=== PATIENT | male | born 1985 | race Caucasian/White ===

== ENCOUNTER 2018-03-17 16:07 | Emergency (ER) | payer MEDICARE ==
--- OUTSIDE RECORDS SUMMARY | 2018-03-17 16:14 | XMS REPORT ---
:1985 External Reference #:[id number] Author Organization [facility] Address [address] [place] [address] [place] [address] Phone [phone] Care Team Providers Name Role Phone Td Moore MD Primary Care Physician Unavailable Payers Type Date Identification Numbers Payment Provider Subscriber Commercial Expires: 2011 Policy Number: [id number] BS Options Tyler Tomlin PayID: [id number] [address] [address] [place] [address] Medigap Part B Effective: 2002 Policy Number: BS Of [place] Johnson Tomlin [id number] Expires: 2009 PayID: [id number] [address] [address] [place] [address] Medigap Part B Policy Number: [id number] BS Facets Johnson Tomlin PayID: [id number] [address] [address] [place] [address] Advance Directives Type Date Description Status Comment Other Directive 11/08/2017 Health Care Proxy Current and Verified Problems Date Description Provider Status Onset: 01/01/2016 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 Active Onset: 03/16/2011 Constipation Ko Sparks M.D. Active Onset: 05/11/2011 Gastrostomy present Vianey Sanchez M.D.,FACP Onset: 10/10/2011 Bronchiolectasis Vianey Sanchez M.D.,FACP Onset: 08/22/2014 Tracheostomy complication Awilda Dowling MD Active Onset: 12/25/2017 Acquired equinovarus deformity Efren Christiansen MD Active Onset: 12/25/2017 Tendon contracture Efren Christiansen MD Active Onset: 10/21/2015 Acute exacerbation of Awilda Dowling MD Inactive bronchiectasis Inactive: 01/01/2016 Onset: 03/16/2011 Hemorrhage of rectum and anus Ko Sparks M.D. 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 Cigarette Use Never Smoked Cigarettes ETOH Use 11/08/2017 Denies alcohol use Recreational Drug Use Denies Drug Use Smoking Patient has never smoked Daily Caffeine Does Not Consume Caffeine Exercise Type/Frequency Exercises regularly elliptical 1x/wk and walking every day General Hx Text Allergies, Adverse Reactions, Alerts Date Description Reaction Status Severity Comments 06/05/2007 NKDA active Medications Medication Date Status Form Strength Qnty SIG Indications Ordering Provider Nebusal 02/20 Active Nebulizer 3% 240ml 1 unit J47.9 Awilda twice daily Josey, for 2 weeks Saline 02/20 Active Solution 0.9% 500un for use Z93.0 Awilda its through Josey, tracheostom y compressor Albuterol 05/30 Active Nebulizer 0.63mg/3M 225ml 1 unit, J47.9 Awilda Sulfate L nebl, every Josey, 12 hours, prior to saline neb Suction Tube 10/20 Active Misc 1unit use as J47.1 Awilda Attachment s instructed Josey Device Suction 10/20 Active Pls provide Awilda Equipment /2015 pt with te Dowling MD equipment and necessary supplies Enteral Pump 09/28 Active 30uni enteral Awilda Bags ts pump bags MD Josey Jevity 1.5 Matthew 09/07 Active Liquid 210un 7 cans/day J95.00 its as concepcion Dowling MD Aden-Cramer 07/12 Active Misc 18FR Kit 1Mont use as Td Low-Profile /2013 h directed dx Deb Moore, Gastrostomy code: v44.1 M.Deb,[facility] Feeding Tube Kit/[id number] Calcium 03/16 Active Suspension 1250mg/5M 1 tsp bid Ko Carbonate L Jose Sparks Calcitriol 07/13 Active Capsules 0.25mcg po qd Td Deb Moore M.D.,[facility] 18F Gastrostomy Active 1unit use as Td Tube /0000 s directed nupur Garrison M.D.,[facility] Benefiber Active Powder 3 teaspoons Unknown /0000 of powder po qd Ibuprofen Active Suspension 100mg/5ML 1420m 20 Unknown /0000 l milliliters every 4-6hr as needed Nebusal 01/15 Hx Nebulizer 3% 240un Inhale The its Contents Of Josey, - One Vial 02/19 Via Nebulizer Twice A Day For 14 Days Ciprofloxacin 10/27 Hx Tablets 500mg 14tab si Td HCL s twice a day Deb Moore, - x 7 days M.DGlo,[facility] 11/03 Ciprofloxacin 10/23 Hx Suspension 500mg/5ML 100ml 5ml by Rec (10%) twice daily Deb Moore, - for 7 days Krista.DGlo,[facility] 10/27 Metronidazole 10/23 Hx Tablets 250mg 21tab three times Td s a day for 7 Deb Moore, - days by Jose,[facility] 10/30 Metronidazole 08/31 Hx Tablets 250mg 21tab three times Zsofia s a day for 7 Cm, - days by [facility] 10/23 Ciprofloxacin 08/31 Hx Tablets 500mg 14tab si Zsofia HCL s twice a day Cm, - x 7 days [facility] 09/07 Nebusal 05/30 Hx Nebulizer 3% 240ml 1 unit J47.9 Awilda /2018 twice daily Josey, - for 2 weeks 08/16 Ciprofloxacin 04/13 Hx Tablets 500mg 14tab one tab Radha HCL s twice a day Caputo, - may crush TECHNICAL OPERATIONS SPECIALIST 05/10 Prednisone 02/24 Hx Solution 5mg/5ML 360ml 30 milliliters Josey, - for 4 days, 04/12 milliliters for 4 days, 20 milliliters for 4 days, 15 milliliters for 4 days, 10ml for 4 days Ciprofloxacin 02/24 Hx Suspension 500mg/5ML 100ml 5ml by Rec (10%) mouth twice Caputo, - daily for TECHNICAL OPERATIONS SPECIALIST 04/13 Prednisone 02/23 Hx Tablets 10mg 42tab 30mg daily J47.9 s for 1 week, Josey, - 20mg daily 02/24 for 1 week, 10 mg daily for 1 week Ciprofloxacin 02/23 Hx Tablets 750mg 20tab 1 by mouth J47.9 Awilda HCL s twice a day Josey, - for 10 days 05/10 Azithromycin 07/28 Hx Tablets 250mg 6tabs 2 tab today J06.9 [place] and then [place] - 1tab daily , M.D. 02/22 Ciprofloxacin 07/01 Hx Tablets 500mg 14tab si Td HCL s twice a day Deb Moore, - x 7 days M.D.,[facility] 07/08 Ciprofloxacin 06/29 Hx Suspension 500mg/5ML 80uni 5 Rec (10%) ts milliliters DGlo Moore, - drop twice M.D.,[facility] 07/01 a day for week Metronidazole 06/29 Hx Tablets 250mg 21tab three times s a day for 7 D. Teresa, - days by gt M.D.,FACP 07/06 Sodium Chloride 04/08 Hx Solution 0.9% 300ml 3 milliliters Caputo, - for toilet TECHNICAL OPERATIONS SPECIALIST 01/15 flush times a day prn Saline Flush 04/07 Hx Solution 0.9% 250ml 5-10cc for Awilda /2016 pulmonary Josey, - iesha 4 04/08 times a day Albuterol 10/20 Hx Nebulizer (2.5mg/3M 4unit 1 unit nebl J47.1 Awilda Sulfate L) 0.083% s every 6 Josey, - hours as 02/22 needed (not taking) Amoxicillin 10/19 Hx Suspension 250mg/5ML 200ml 10ml biid x [place] Rec 10 days Bridger Gipson M.D. 06/29 [facility] 09/06 Hx 300un Not using its currently Josey, - 7-8 06/29 cans/ /2016 Saline 09/06 Hx as needed to trach - 04/06 Jevity 1.5 Matthew 08/04 Hx Liquid 6/day gt Td Brandan Garrison M.D.,FACP 09/06 Azithromycin 05/18 Hx Suspension 200mg/5ML 45ml 12.5ml on Rec day 1, then Maltese, - 7.5ml on TECHNICAL OPERATIONS SPECIALIST 05/23 day 2-5 via g-tube then stop Levofloxacin 03/06 Hx Solution 25mg/ml 140ml 20ml by mouth daily Cruz, - for 7 days M.D. 05/18 (Please call [facility] on [facility] for insurance information per Arturo sigala [facility] Mucinex 03/06 Hx Tablets ER 600mg 14tab 1 tablt by 12HR s mouth twice Cruz, - a day M.D. 05/18 Guiatuss 03/06 Hx Syrup 100mg/5ML 4ounc 2 teaspoons es (=10 ml) Cruz, - every 4 M.D. 04/17 hours as needed for cough [facility]mocare 10/30 Hx Liquid 300un 1 inhl Awilda /2015 its three times Josey, - a day as 03/05 directed [facility] 10/29 Hx Liquid 300un use as Awilda its directed Josey, - 10/30 Zithromax 08/22 Hx Suspension 200mg/5ML 100un 5 cc by J47.9 Rec its mouth four Josey, - times a day 02/25 Pulm[facility]are 08/22 Hx Liquid 300un Use as 494.0 its directed Josey, - 10/29 Augmentin 03/02 Hx Unknown /2013 - 08/21 Robitussin 03/12 Hx Liquid 30-15-200 10 ML gt 4x 466.0 Td Cough & Cold D mg/5ML /day Brandan Garrison M.D.,FACP 05/13 Augmentin 03/12 Hx Suspension 250-62.5m 300ml 15 ml gt 466.0 Josue Laws Rec g/5ML bid for 10 [place], - grace Garcia 03/04 Levaquin 03/02 Hx Solution 25mg/ml 140un 20ml gt qd 466.0 its for 7 days Brandan Garrison M.D.,[facility] 03/13 Clarithromycin 08/23 Hx Suspension 250mg/5ML 150ml 10 ml by gt 466.0 Rec bid for 7 D. Brandan Moore M.D.,FACP 11/08 Lexapro 03/21 Hx Solution 5mg/5ML 30uni 10 ML gt qd Brandan Pratt M.D.,FACP 12/29 Lexapro 03/16 Hx Liquid 10mg 30uni 1 po qd kavita Gipson M.D. 03/21 Zithromax 03/16 Hx Solution Rec 500mg 10 ml every other day Bridger Gipson M.D. 08/23 Anusol-HC 03/16 Hx Suppository 25mg 12uni use as 569.3 ts directed Bridger Gipson M.D. 05/30 Colace 03/16 Hx Syrup 60mg/15ML 900un 30ml po qd 569.3 demetria Gipson M.D. 05/30 Omeprazole 03/[address] 20mg 30cap 1 via G 530.81 s tube qd Bridger Gipson M.D. 05/30 Ergocalciferol 05/11 Hx Solution 8000Unit/ 10ml 1 ML gt ML once a week Brandan Garrison M.D.,[facility] 03/16 Augmentin 06/08 Hx Suspension 250/5ML 300ml 10 ml tid x 486 Rec 10 days Brandan Garrison M.D.,[facility] 02/26 Levaquin 06/05 Hx Tablets 500mg 10tab 1 po qd x 486 s 10days Brandan Garrison M.D.,[facility] 06/08 Pulmozyme Hx Solution 1mg/ml Brandan Garrison M.D.,[facility] 04/02 Pulmicort 00 Hx bid Brandan Garrison M.D.,[facility] 03/16 Zithromax 00/00 Hx every other day Brandan Garrison M.D.,[facility] 12/10 Albuterol 00/ Hx Brandan Garrison M.D.,[facility] 03/16 Zithromax 00/00 Hx Solution Rec 500mg D/C 'd 0000 until - augmentin 03/04 10 ml every other day Zithromax 00/00 Hx - 08/22 Medications Administered in Office Medication Date Status Form Strength Qnty SIG Indications Ordering Provider Influenza Administered Injection Unknown Virus Vaccine 016 Influenza Administered Injection Unknown Virus Vaccine 014 Immunizations CPT Code Status Date Vaccine Lot # [id number] Given 02/15/2017 Influenza Virus Vaccine, Quadrivalent, Split, Preservative Free [id number] Given 02/18/2013 Afluria Vaccine 24677 Given 02/08/2012 Influenza Virus 3Yrs & Over 53492 Given 02/15/2011 Influenza Virus 3Yrs & Over 89683 Given 02/07/2010 Influenza Virus 3Yrs & Over 19507 Given 02/27/2008 Influenza Virus 3Yrs & Over 77737 Given 03/31/2006 Pneumovax (History By Patient) 138iu Vital Signs Date Vital Result Comment 03/06/2018 Height 66.5 inches 5'6.50" Weight 119.00 lb Heart Rate 56 /min BP Systolic 90 mmHg BP Diastolic 50 mmHg Body Temperature 97.5 F O2 % BldC Oximetry 95 % BMI (Body Mass Index) 18.9 kg/m2 02/20/2018 Height 66.5 inches 5'6.50" Weight 118.00 lb Heart Rate 88 /min BP Systolic Sitting 122 mmHg BP Diastolic Sitting 68 mmHg Respiratory Rate 14 /min O2 % BldC Oximetry 93 % BMI (Body Mass Index) 18.8 kg/m2 01/02/2018 Height 66.5 inches 5'6.50" Weight 115.00 lb Heart Rate 56 /min Respiratory Rate 15 /min Body Temperature 97.3 F Pain Level 1 BMI (Body Mass Index) 18.3 kg/m2 12/25/2017 Height 66.5 inches 5'6.50" Weight 115.00 lb Heart Rate 60 /min BP Systolic Sitting 112 mmHg BP Diastolic Sitting 50 mmHg Body Temperature 97.1 F Pain Level 2 BMI (Body Mass Index) 18.3 kg/m2 11/23/2017 Height 65.5 inches 5'5.50" Weight 113.00 lb Heart Rate 81 /min BP Systolic 95 mmHg BP Diastolic 63 mmHg Body Temperature 98.2 F O2 % BldC Oximetry 95 % BMI (Body Mass Index) 18.5 kg/m2 11/08/2017 Height 65.5 inches 5'5.50" Weight 111.00 lb Heart Rate 70 /min BP Systolic Sitting 110 mmHg BP Diastolic Sitting 58 mmHg Body Temperature 96.4 F O2 % BldC Oximetry 97 % BMI (Body Mass Index) 18.2 kg/m2 10/23/2017 Height 66 inches 5'6" Weight 110.00 lb Heart Rate 70 /min BP Systolic Sitting 98 mmHg BP Diastolic Sitting 60 mmHg Body Temperature 97.6 F O2 % BldC Oximetry 96 % BMI (Body Mass Index) 17.8 kg/m2 08/30/2017 Height 66 inches 5'6" Weight 113.38 lb Heart Rate 84 /min BP Systolic Sitting 112 mmHg BP Diastolic Sitting 68 mmHg Body Temperature 98.5 F O2 % BldC Oximetry 95 % BMI (Body Mass Index) 18.3 kg/m2 08/17/2017 Height 66 inches 5'6" Weight 114.00 lb Heart Rate 72 /min BP Systolic Sitting 120 mmHg BP Diastolic Sitting 64 mmHg Respiratory Rate 14 /min O2 % BldC Oximetry 94 % BMI (Body Mass Index) 18.4 kg/m2 05/30/2017 Height 66 inches 5'6" Weight 111.00 lb Heart Rate 70 /min BP Systolic Sitting 102 mmHg Rue reg cuff BP Diastolic Sitting 62 mmHg Rue reg cuff Respiratory Rate 20 /min O2 % BldC Oximetry 98 % On Ra BMI (Body Mass Index) 17.9 kg/m2 05/10/2017 Weight 111.00 lb Heart Rate 63 /min BP Systolic Sitting 98 mmHg BP Diastolic Sitting 58 mmHg Body Temperature 97.3 F O2 % BldC Oximetry 97 % 04/17/2017 Height 66 inches 5'6" Weight 111.50 lb Heart Rate 90 /min BP Systolic Sitting 90 mmHg Rue reg cuff BP Diastolic Sitting 54 mmHg Rue reg cuff Respiratory Rate 24 /min O2 % BldC Oximetry 96 % On Ra BMI (Body Mass Index) 18.0 kg/m2 04/12/2017 Weight 112.12 lb Heart Rate 83 /min BP Systolic Sitting 110 mmHg BP Diastolic Sitting 60 mmHg Body Temperature 96.2 F O2 % BldC Oximetry 93 % 02/23/2017 Height 66 inches 5'6" Weight 113.00 lb Heart Rate 76 /min BP Systolic Sitting 106 mmHg BP Diastolic Sitting 64 mmHg Respiratory Rate 14 /min O2 % BldC Oximetry 95 % BMI (Body Mass Index) 18.2 kg/m2 07/28/2016 Height 66 inches 5'6" Weight 115.25 lb Heart Rate 95 /min BP Systolic Sitting 110 mmHg BP Diastolic Sitting 58 mmHg Body Temperature 96.1 F O2 % BldC Oximetry 95 % BMI (Body Mass Index) 18.6 kg/m2 07/26/2016 Height 66 inches 5'6" Weight 115.00 lb Heart Rate 84 /min BP Systolic Sitting 112 mmHg BP Diastolic Sitting 60 mmHg Respiratory Rate 14 /min O2 % BldC Oximetry 96 % BMI (Body Mass Index) 18.6 kg/m2 06/29/2016 Weight 115.12 lb Heart Rate 73 /min BP Systolic Sitting 110 mmHg BP Diastolic Sitting 66 mmHg Body Temperature 97.7 F O2 % BldC Oximetry 98 % 10/21/2015 Height 66 inches 5'6" Weight 120.00 lb Heart Rate 110 /min BP Systolic 108 mmHg BP Diastolic 72 mmHg Respiratory Rate 24 /min Body Temperature 99.9 F O2 % BldC Oximetry 93 % BMI (Body Mass Index) 19.4 kg/m2 10/20/2015 Height 66 inches 5'6" Weight 120.38 lb Heart Rate 98 /min BP Systolic Sitting 113 mmHg BP Diastolic Sitting 67 mmHg Body Temperature 99.8 F O2 % BldC Oximetry 97 % BMI (Body Mass Index) 19.4 kg/m2 09/08/2015 Height 66 inches 5'6" Weight 119.00 lb Heart Rate 67 /min BP Systolic Sitting 100 mmHg BP Diastolic Sitting 58 mmHg Respiratory Rate 18 /min O2 % BldC Oximetry 97 % BMI (Body Mass Index) 19.2 kg/m2 05/18/2015 Height 66 inches 5'6" Weight 119.00 lb Heart Rate 80 /min BP Systolic Sitting 98 mmHg BP Diastolic Sitting 66 mmHg Body Temperature 97.4 F O2 % BldC Oximetry 98 % BMI (Body Mass Index) 19.2 kg/m2 03/06/2015 Height 66 inches 5'6" Weight 118.00 lb Heart Rate 68 /min BP Systolic Sitting 80 mmHg BP Diastolic Sitting 42 mmHg Body Temperature 97.2 F O2 % BldC Oximetry 94 % BMI (Body Mass Index) 19.0 kg/m2 02/25/2015 Height 66 inches 5'6" Weight 117.25 lb Heart Rate 63 /min BP Systolic Sitting 122 mmHg BP Diastolic Sitting 64 mmHg Respiratory Rate 18 /min O2 % BldC Oximetry 98 % BMI (Body Mass Index) 18.9 kg/m2 08/22/2014 Height 66 inches 5'6" Weight 118.00 lb Heart Rate 65 /min BP Systolic Sitting 120 mmHg BP Diastolic Sitting 68 mmHg Body Temperature 98.8 F O2 % BldC Oximetry 98 % BMI (Body Mass Index) 19.0 kg/m2 Neck Circumference in inches 15 08/22/2014 Height 66 inches 5'6" Weight 118.00 lb BMI (Body Mass Index) 19.0 kg/m2 05/14/2014 Weight 120.75 lb Heart Rate 55 /min BP Systolic Sitting 96 mmHg BP Diastolic Sitting 56 mmHg Body Temperature 98.1 F 03/04/2014 Height 65.75 inches 5'5.75" Weight 118.75 lb Heart Rate 64 /min BP Systolic Sitting 98 mmHg BP Diastolic Sitting 56 mmHg Body Temperature 96.8 F BMI (Body Mass Index) 19.3 kg/m2 05/13/2013 Weight 122.00 lb Heart Rate 90 /min BP Systolic Sitting 118 mmHg BP Diastolic Sitting 52 mmHg Body Temperature 97.1 F O2 % BldC Oximetry 96 % 03/18/2013 Height 65.75 inches 5'5.75" Weight 119.25 lb Heart Rate 68 /min BP Systolic Sitting 100 mmHg BP Diastolic Sitting 58 mmHg Body Temperature 97.7 F BMI (Body Mass Index) 19.4 kg/m2 03/12/2013 Weight 124.50 lb Heart Rate 96 /min BP Systolic Sitting 116 mmHg BP Diastolic Sitting 72 mmHg Body Temperature 98.1 F O2 % BldC Oximetry 94 % 02/04/2013 Weight 120.75 lb Heart Rate 70 /min BP Systolic Sitting 118 mmHg BP Diastolic Sitting 68 mmHg Body Temperature 96.7 F O2 % BldC Oximetry 98 % 03/13/2012 Height 65 inches 5'5" Weight 123.00 lb Heart Rate 89 /min BP Systolic Sitting 90 mmHg BP Diastolic Sitting 52 mmHg Body Temperature 98.2 F lt ear O2 % BldC Oximetry 98 % BMI (Body Mass Index) 20.5 kg/m2 03/02/2012 Height 65 inches 5'5" Weight 123.00 lb Heart Rate 58 /min BP Systolic Sitting 100 mmHg BP Diastolic Sitting 64 mmHg Body Temperature 97.8 F lt ear BMI (Body Mass Index) 20.5 kg/m2 08/24/2011 Height 65 inches 5'5" Weight 124.00 lb Heart Rate 79 /min BP Systolic Sitting 100 mmHg BP Diastolic Sitting 60 mmHg Body Temperature 99.4 F Tympanically O2 % BldC Oximetry 97 % BMI (Body Mass Index) 20.6 kg/m2 05/30/2011 Height 65 inches 5'5" Weight 125.00 lb Heart Rate 68 /min BP Systolic Sitting 110 mmHg BP Diastolic Sitting 65 mmHg BMI (Body Mass Index) 20.8 kg/m2 03/16/2011 Height 65 inches 5'5" Weight 120.50 lb Heart Rate 68 /min BP Systolic Sitting 100 mmHg BP Diastolic Sitting 50 mmHg BMI (Body Mass Index) 20.1 kg/m2 04/02/2010 Height 67 inches 5'7" Weight 112.00 lb Heart Rate 70 /min BP Systolic Sitting 96 mmHg BP Diastolic Sitting 64 mmHg BMI (Body Mass Index) 17.5 kg/m2 06/01/2009 Height 67 inches 5'7" Weight 126.75 lb Heart Rate 64 /min BP Systolic Sitting 96 mmHg BP Diastolic Sitting 64 mmHg Body Temperature 97.5 F O2 % BldC Oximetry 95 % BMI (Body Mass Index) 19.8 kg/m2 02/27/2008 Height 67 inches 5'7" Weight 105.00 lb Heart Rate 76 /min BP Systolic Sitting 110 mmHg BP Diastolic Sitting 58 mmHg BMI (Body Mass Index) 16.4 kg/m2 06/05/2007 Height 67 inches 5'7" Weight 114.00 lb Heart Rate 62 /min BP Systolic Sitting 118 mmHg BP Diastolic Sitting 68 mmHg Body Temperature 102.4 F BMI (Body Mass Index) 17.9 kg/m2 Results Test Date Test Result H/L Range Note Rapid Influenza A & B 03/06/2018 Influenza A Molecular NEGATIVE Negative 1 Molecular Influenza B Molecular NEGATIVE Negative Laboratory test finding 03/06/2018 Influenza A & B Request SEE RESULT BELOW 2 Laboratory test finding 11/23/2017 Rapid Group A Strep negative Lipid Profile 11/06/2017 Triglycerides 114 mg/dL 3 (Trig/Chol/HDL) Cholesterol 121 mg/dL 4 HDL Cholesterol 37.7 mg/dL 5 LDL Cholesterol 61 mg/dL 6 Laboratory test finding 11/06/2017 Vitamin D Total 25(Oh) 24.5 ng/mL 20- 50 7 Pthi 11/06/2017 Calcium (PTH Intact) 9.3 mg/dL 8.6-10.3 PTH Intact 7.1 pmol/L 1.3-9.3 Comp Metabolic Panel 11/06/2017 Sodium 139 mmol/L 135-145 Potassium 4.0 mmol/L 3.5-5.0 Chloride 103 mmol/L 101-111 Co2 Carbon Dioxide 29 mmol/L 22-32 Anion Gap 7 mmol/L 2-11 Glucose 80 mg/dL 70-100 Blood Urea Nitrogen 20 mg/dL 6-24 Creatinine 0.62 mg/dL Low 0.67-1.17 BUN/Creatinine Ratio 32.3 High 8-20 Calcium 9.3 mg/dL 8.6-10.3 Total Protein 7.4 g/dL 6.4-8.9 Albumin 4.0 g/dL 3.2-5.2 Globulin 3.4 g/dL 2-4 Albumin/Globulin Ratio 1.2 1-3 Total Bilirubin 0.80 mg/dL 0.2-1.0 Alkaline Phosphatase 66 U/L 34-104 Alt 21 U/L 7-52 Ast 21 U/L 13-39 Egfr Non- 151.3 >60 Egfr 183.1 >60 8 Laboratory test finding 11/06/2017 Prealbumin 23 mg/dL 18-38 Vitamin D, 1,25 Dihydroxy 33 pg/mL 18-64 9 CBC Auto Diff 08/30/2017 White Blood Count 11.1 10^3/uL High 3.5-10.8 Red Blood Count 4.84 10^6/uL 4.0-5.4 Hemoglobin 14.1 g/dL 14.0-18.0 Hematocrit 43 % 42-52 Mean Corpuscular Volume 88 fL 80-94 Mean Corpuscular Hemoglobin 29 pg 27-31 Mean Corpuscular HGB Conc 33 g/dL 31-36 Red Cell Distribution Width 15 % 10.5-15 Platelet Count 248 10^3/uL 150-450 Mean Platelet Volume 9.8 um3 7.4-10.4 Abs Neutrophils 8.3 10^3/uL High 1.5-7.7 Abs Lymphocytes 1.5 10^3/uL 1.0-4.8 Abs Monocytes 0.8 10^3/uL 0-0.8 Abs Eosinophils 0.3 10^3/uL 0-0.6 Abs Basophils 0.1 10^3/uL 0-0.2 Abs Nucleated RBC 0 10^3/uL Granulocyte % 75.0 % 38-83 Lymphocyte % 13.9 % Low 25-47 Monocyte % 7.5 % High 0-7 Eosinophil % 3.1 % 0-6 Basophil % 0.5 % 0-2 Nucleated Red Blood Cells % 0 Laboratory test finding 08/30/2017 Lipase 56 U/L 11.0-82.0 Amylase 41 U/L 29-103 C Reactive Protein 16.70 mg/L High < 5.00 10 Comp Metabolic Panel 08/30/2017 Sodium 142 mmol/L 139-145 Potassium 4.4 mmol/L 3.5-5.0 Chloride 102 mmol/L 101-111 Co2 Carbon Dioxide 31 mmol/L 22-32 Anion Gap 9 mmol/L 2-11 Glucose 82 mg/dL 70-100 Blood Urea Nitrogen 21 mg/dL 6-24 Creatinine 0.73 mg/dL 0.67-1.17 BUN/Creatinine Ratio 28.8 High 8-20 Calcium 9.7 mg/dL 8.6-10.3 Total Protein 8.2 g/dL 6.4-8.9 Albumin 4.1 g/dL 3.2-5.2 Globulin 4.1 g/dL High 2-4 Albumin/Globulin Ratio 1.0 1-3 Total Bilirubin 0.90 mg/dL 0.2-1.0 Alkaline Phosphatase 78 U/L 34-104 Alt 25 U/L 7-52 Ast 25 U/L 13-39 Egfr Non- 125.3 >60 Egfr 161.2 >60 11 CBC Auto Diff 06/29/2016 White Blood Count 8.9 10^3/uL 3.5-10.8 Red Blood Count 4.90 10^6/uL 4.0-5.4 Hemoglobin 14.7 g/dL 14.0-18.0 Hematocrit 44 % 42-52 Mean Corpuscular Volume 90 fL 80-94 Mean Corpuscular Hemoglobin 30 pg 27-31 Mean Corpuscular HGB Conc 33 g/dL 31-36 Red Cell Distribution Width 14 % 10.5-15 Platelet Count 204 10^3/uL 150-450 Mean Platelet Volume 10 um3 7.4-10.4 Abs Neutrophils 6.4 10^3/uL 1.5-7.7 Abs Lymphocytes 1.6 10^3/uL 1.0-4.8 Abs Monocytes 0.8 10^3/uL 0-0.8 Abs Eosinophils 0.1 10^3/uL 0-0.6 Abs Basophils 0 10^3/uL 0-0.2 Abs Nucleated RBC 0.01 10^3/uL Granulocyte % 71.7 % 38-83 Lymphocyte % 17.7 % Low 25-47 Monocyte % 8.6 % 1-9 Eosinophil % 1.5 % 0-6 Basophil % 0.5 % 0-2 Nucleated Red Blood Cells % 0.1 Comp Metabolic Panel 06/29/2016 Sodium 139 mmol/L 133-145 Potassium 4.6 mmol/L 3.5-5.0 Chloride 102 mmol/L 101-111 Co2 Carbon Dioxide 33 mmol/L High 22-32 Anion Gap 4 mmol/L 2-11 Glucose 91 mg/dL 70-100 Blood Urea Nitrogen 19 mg/dL 6-24 Creatinine 0.69 mg/dL 0.67-1.17 BUN/Creatinine Ratio 27.5 High 8-20 Calcium 9.9 mg/dL 8.6-10.3 Total Protein 8.0 g/dL 6.4-8.9 Albumin 4.2 g/dL 3.2-5.2 Globulin 3.8 g/dL 2-4 Albumin/Globulin Ratio 1.1 1-3 Total Bilirubin 1.30 mg/dL High 0.2-1.0 Alkaline Phosphatase 84 U/L 34-104 Alt 26 U/L 7-52 Ast 23 U/L 13-39 Egfr Non- 134.6 >60 Egfr 173.1 >60 12 Iron & Iron Binding Capacity 06/29/2016 Iron 31 g/dL Low 50-212 Unsaturated Iron Binding 362 g/dL Total Iron Binding Capacity 393 g/dL 250-450 % Iron Saturation 8 % Low 15-55 Laboratory test finding 06/29/2016 C Reactive Protein 20.96 mg/L High < 5.00 13 CBC Auto Diff 10/30/2015 White Blood Count 6.9 10^3/uL 3.5-10.8 Red Blood Count 4.72 10^6/uL 4.0-5.4 Hemoglobin 13.4 g/dL Low 14.0-18.0 Hematocrit 41 % Low 42-52 Mean Corpuscular Volume 86 fL 80-94 Mean Corpuscular Hemoglobin 28 pg 27-31 Mean Corpuscular HGB Conc 33 g/dL 31-36 Red Cell Distribution Width 15 % 10.5-15 Platelet Count 334 10^3/uL 150-450 Mean Platelet Volume 9 um3 7.4-10.4 Abs Neutrophils 4.1 10^3/uL 1.5-7.7 Abs Lymphocytes 1.8 10^3/uL 1.0-4.8 Abs Monocytes 0.7 10^3/uL 0-0.8 Abs Eosinophils 0.3 10^3/uL 0-0.6 Abs Basophils 0 10^3/uL 0-0.2 Abs Nucleated RBC 0 10^3/uL Granulocyte % 59.1 % 38-83 Lymphocyte % 26.4 % 25-47 Monocyte % 9.8 % High 1-9 Eosinophil % 4.2 % 0-6 Basophil % 0.5 % 0-2 Nucleated Red Blood Cells % 0 Comp Metabolic Panel 10/30/2015 Sodium 136 mmol/L 133-145 Potassium 4.2 mmol/L 3.5-5.0 Chloride 102 mmol/L 101-111 Co2 Carbon Dioxide 29 mmol/L 22-32 Anion Gap 5 mmol/L 2-11 Glucose 78 mg/dL 70-100 Blood Urea Nitrogen 19 mg/dL 6-24 Creatinine 0.62 mg/dL Low 0.67-1.17 BUN/Creatinine Ratio 30.6 High 8-20 Calcium 9.4 mg/dL 8.6-10.3 Total Protein 7.6 g/dL 6.4-8.9 Albumin 3.6 g/dL 3.2-5.2 Globulin 4.0 g/dL 2-4 Albumin/Globulin Ratio 0.9 Low 1-3 Total Bilirubin 0.70 mg/dL 0.2-1.0 Alkaline Phosphatase 86 U/L 34-104 Alt 24 U/L 7-52 Ast 23 U/L 13-39 Egfr Non- 153.4 >60 Egfr 197.2 >60 14 Laboratory test finding 10/30/2015 Prealbumin 22 mg/dL 18-38 C Reactive Protein 9.96 mg/L High < 5.00 15 Vitamin D Total 25(Oh) 21.6 ng/mL Low 30-50 Osteocalcin 26 ng/mL 9 - 42 16 Alp Bone Isoenzymes 16 g/L 0-20 17 NTX (N-Telopeptide) Urine 10/30/2015 Urine Creatinine 134 mg/dL 18 NTX 329 nmol/L Ur NTX-Telo 28 nmol/mmol 21 - 66 19 Laboratory test finding 10/30/2015 Vitamin D, 1,25 42 pg/mL 18-64 20 Dihydroxy Laboratory test finding 04/16/2015 TSH (Thyroid Stim Horm) 2.84 ?IU/mL 0.34-5.60 Vitamin D Total 25(Oh) 23.5 ng/mL Low 30-50 Osteocalcin 29 ng/mL 9 - 42 21 Alp Bone Isoenzymes 20 g/L 0-20 22 Comp Metabolic Panel 04/16/2015 Sodium 139 mmol/L 133-145 Potassium 3.9 mmol/L 3.5-5.0 Chloride 104 mmol/L 101-111 Co2 Carbon Dioxide 28 mmol/L 22-32 Anion Gap 7 mmol/L 2-11 Glucose 82 mg/dL 70-100 Blood Urea Nitrogen 23 mg/dL 6-24 Creatinine 0.57 mg/dL Low 0.67-1.17 BUN/Creatinine Ratio 40.4 High 8-20 Calcium 9.6 mg/dL 8.6-10.3 Total Protein 7.9 g/dL 6.4-8.9 Albumin 4.1 g/dL 3.2-5.2 Globulin 3.8 g/dL 2-4 Albumin/Globulin Ratio 1.1 1-3 Total Bilirubin 0.80 mg/dL 0.2-1.0 Alkaline Phosphatase 95 U/L 34-104 Alt 20 U/L 7-52 Ast 22 U/L 13-39 Egfr Non- 169.0 >60 Egfr 217.3 >60 23 NTX (N-Telopeptide) Urine 04/11/2014 Urine Creatinine 189 mg/dL 24 NTX 611 nmol/L Ur NTX-Telo 37 nmol/mmol 21 - 66 25 Laboratory test finding 04/08/2014 Alp Bone Isoenzymes 16 g/L 0-20 26 , 27 Osteocalcin 21 ng/mL 9 - 42 26, 28 Vitamin A (Retinol) 38.6 g/dL 32.5-78.0 26, 29 Vitamin E Level 11.4 mg/L 5.5 - 17.0 26, 30 Vitamin D, 25 Hydroxy 04/08/2014 25-Hydroxy Vitamin D2 <4.0 ng/mL 26 25-Hydroxy Vitamin D3 26 ng/mL 26 25-Hydroxy Vitamin D Total 26 ng/mL 26, 31 Comp Metabolic Panel 04/08/2014 Sodium 137 mmol/L 133-145 26 Potassium 3.3 mmol/L Low 3.5-5.0 26 Chloride 107 mmol/L 101-111 26 Co2 Carbon Dioxide 23 mmol/L 22-32 26 Anion Gap 7 mmol/L 2-11 26 Glucose 121 mg/dL High 70-100 26 Blood Urea Nitrogen 20 mg/dL 6-24 26 Creatinine 0.60 mg/dL Low 0.67-1.17 26 BUN/Creatinine Ratio 33.3 High 8-20 26 Calcium 9.4 mg/dL 8.6-10.3 26 Total Protein 7.4 g/dL 6.4-8.9 26 Albumin 4.2 g/dL 3.2-5.2 26 Globulin 3.2 g/dL 2-4 26 Albumin/Globulin Ratio 1.3 1-3 26 Total Bilirubin 2.10 mg/dL High 0.2-1.0 26 Alkaline Phosphatase 87 U/L 34-104 26 Alt 20 U/L 7-52 26 Ast 20 U/L 13-39 26 Egfr Non- 160.4 >60 26 Egfr 206.3 >60 26, 32 Basic Metabolic Panel 04/01/2013 Sodium 138 mmol/L 133-145 Potassium 4.0 mmol/L 3.5-5.0 Chloride 103 mmol/L 101-111 Co2 Carbon Dioxide 28.0 mmol/L 22-32 Anion Gap 7.0 mmol/L 2-11 Glucose 79 mg/dL 70-100 Blood Urea Nitrogen 20 mg/dL 6-24 Creatinine 0.60 mg/dL 0.50-1.40 BUN/Creatinine Ratio 33.3 High 8-20 Calcium 9.2 mg/dL 8.1-9.9 Egfr Non- 161.6 >60 Egfr 207.8 >60 33 Creatinine Clearance 04/01/2013 Urine Random Creatinine 134.3 mg/dL Creatinine 0.6 mg/dL 0.5-1.4 Creatinine Clearance 124 mL/min 97-137 Urine Collection Time 24 Urine Total Volume 800 mL Calcium 24HR Urine 04/01/2013 Urine Random Calcium 18.2 mg/dL Urine Calcium/24HR 145.6 mg/24Hr 50-400 Creatinine Clearance 11/07/2011 Creatinine Random Urine 144.9 mg/dL 34 Creat Clearance 129.9 mL/min High 80-125 34 Hours Of Collection 24 HR 24- 34 Urine Volume Measurement 775 ML 34 Calcium 24HR Urine 11/07/2011 Calcium Random Urine 16.0 mg/dL 34 Urine Calcium/24HR 124.0 MG/24HR 50-400 34 Laboratory test finding 11/07/2011 Alkaline Phosphatase Bone 17 g/L 0- 20 34, 35 Iso N-Telopeptide Urine 11/07/2011 Creatinine Urine 140 mg/dL () 34, 36 NTX 493 nmol/L () 34 NTX-Telopeptide, Ur 40 21 - 66 34, 37 Lipid Profile (Trig/Chol/HDL) 05/27/2011 Triglyceride 92 mg/dL 40-200 Cholesterol 138 mg/dL Less Than 200 38 High Density Lipoprotein 42 mg/dL 40-60 39 Cholesterol/HDL Ratio 3.29 AVERAGE 1-4.97 Low Density Lipoprotein 78 mg/dL Less Than 100 40 Basic Metabolic Panel 05/27/2011 Sodium 139 mmol/L 135-145 Potassium 4.1 mmol/L 3.5-5.0 Chloride 100 mmol/L Low 101-111 Co2 (Carbon Dioxide) 31.0 mmol/L 22-32 Anion Gap 8.0 mmol/L 2-11 41 Glucose 84 mg/dL 70-100 BUN 14 mg/dL 6-24 Creatinine 0.7 mg/dL 0.50-1.40 One Over Creatinine 1.42 BUN/Creatinine Ratio 20.0 8-20 Calcium 9.4 mg/dL 8.1-9.9 eGFR Non- 137.4 > 60 eGFR 176.7 > 60 42 Calcium 24HR Urine 10/16/2010 Calcium Random Urine 16.8 mg/dL Urine Calcium/24HR 117.6 MG/24HR 50-400 Hours Of Collection 24 HR 24- Urine Volume Measurement 700 ML Laboratory test finding 10/16/2010 Alkaline Phosphatase Bone Iso 16 g/L 0-20 43 N-Telopeptide Urine 10/16/2010 Creatinine Urine 124 mg/dL () NTX 404 nmol/L () NTX-Telopeptide, Ur 37 21-66 44 Laboratory test finding 10/16/2010 Osteocalcin 25 ng/mL 9-42 45 Vitamin D, 25 Hydroxy 05/07/2010 25-Hydroxy Vitamin D2 <4.0 ng/mL () 25-Hydroxy Vitamin D3 24 ng/mL () 25-Hydroxy Vitamin D Total 24 ng/mL () 46 PTH Intact, Inc Total Calcium 05/07/2010 PTH Intact 10.7 PMOL/L High 1.3- 9.3 Calcium For Pthi 9.2 mg/dL 8.1-9.9 47 Manual Differential 03/30/2010 Polysegmented Neutrophil 67 % 38-83 Band Neutrophil 4 % 0-8 Lymphocyte 13 % Low 25-47 Monocyte 11 % 0-13 Eosinophil 4 % 0-6 Atypical Lymph 1 % 0-6 Absolute Neutrophil Count 6.3 RBC Morphology NORMAL Liver Function Panel 03/30/2010 Total Protein 6.7 GM/DL 6.2-8.1 Albumin 4.1 GM/DL 3.6-5.4 Globulin 2.6 GM/DL 2-4 Albumin/Globulin Ratio 1.6 1-3 Bilirubin Total 1.6 mg/dL High 0.4-1.5 48 Bilirubin Direct 0.3 mg/dL 0.1-0.5 Indirect Bilirubin 1.3 mg/dL High 0.3-1.0 49 Alkaline Phosphatase 91 U/L 39-117 Alt (SGPT) 27 U/L 17-63 Ast (Sgot) 30 U/L 12-42 Laboratory test finding 03/30/2010 Prealbumin 24.6 mg/dL 18-38 CBC With Electronic Diff 03/30/2010 White Blood Count 9.0 CUMM 4.8-10.8 Red Cell Count 4.94 CUMM 4.6-6.2 Hemoglobin 15.5 g/dL 14.0-18.0 Hematocrit 46 % 42-52 Mean Corpuscular Volume 92 um3 80-94 Mean Corpuscular Hemoglob 31 pg 27-31 Mean Corpuscular HGB Cone 34 g/dL 32-36 Redcell Distribution WDTH 15 % 10.5-15 Platelet Count 181 CUMM 150-450 Mean Platelet Volume 10.4 um3 7.4-10.4 50 Basic Metabolic Panel 03/30/2010 Sodium 136 mmol/L 135-145 Potassium 3.8 mmol/L 3.5-5.0 Chloride 101 mmol/L 101-111 Co2 (Carbon Dioxide) 29.0 mmol/L 22-32 Anion Gap 6.0 mmol/L 2-11 51 Glucose 91 mg/dL 70-100 52 BUN 18 mg/dL 6-24 Creatinine 0.60 mg/dL 0.50-1.40 One Over Creatinine 1.60 BUN/Creatinine Ratio 30.0 High 8-20 Calcium 9.3 mg/dL 8.1-9.9 eGFR Non- 175.9 > 60 eGFR 212.9 > 60 53 Lipid Profile (Trig/Chol/HDL) 03/30/2010 Triglyceride 53 mg/dL 40-200 Cholesterol 133 mg/dL Less Than 200 54 High Density Lipoprotein 36 mg/dL Low 40-60 55 Cholesterol/HDL Ratio 3.69 AVERAGE 1-4.97 Low Density Lipoprotein 86 mg/dL Less Than 100 56 CBC With Electronic Diff 02/29/2008 White Blood Count 7.1 CUMM 4.8-10.8 57 Red Cell Count 4.78 CUMM 4.6-6.2 57 Hemoglobin 14.4 g/dL 14.0-18.0 57 Hematocrit 42 % 42-52 57 Mean Corpuscular Volume 89 um3 80-94 57 Mean Corpuscular Hemoglob 30 pg 27-31 57 Mean Corpuscular HGB Cone 34 g/dL 32-36 57 Redcell Distribution WDTH 15 % 10.5-15 57 Platelet Count 235 CUMM 150-450 57 Mean Platelet Volume 9.9 um3 7.4-10.4 57 Gran % 65.2 % 38-83 57 Lymph % 19.9 % Low 20-45 57 Mononuclear % 7.4 % 1-9 57 Eosinophil % 6.8 % High 0-6 57 Basophil % 0.7 % 0-2 57 Abs Lymphs 1.4 1.0-4.8 57 Abs Mononuclear 0.5 0-0.8 57 Absolute Neutrophil Count 4.6 1.5-7.7 57 Abs Eosinophils 0.5 0-0.6 57 Abs Basophils 0 0-0.2 57, 58 Basic Metabolic Panel 02/29/2008 Sodium 140 mmol/L 135-145 57 Potassium 4.1 mmol/L 3.5-5.0 57 Chloride 106 mmol/L 101-111 57 Co2 (Carbon Dioxide) 29.0 mmol/L 22-32 57 Anion Gap 5.0 mmol/L 2-11 57, 59 Glucose 90 mg/dL 70-100 57, 60 BUN 18 mg/dL 6-24 57 Creatinine 0.57 mg/dL 0.50-1.40 57 One Over Creatinine 1.70 57 BUN/Creatinine Ratio 31.6 High 8-20 57 Calcium 9.3 mg/dL 8.1-9.9 57, 61 Lipid Profile (Trig/Chol/HDL) 02/29/2008 Triglyceride 43 mg/dL 40-200 57 Cholesterol 114 mg/dL Less Than 200 57, 62 High Density Lipoprotein 39 mg/dL Low 40-60 57, 63 Cholesterol/HDL Ratio 2.92 AVERAGE 1-4.97 57 Low Density Lipoprotein 66 mg/dL Less Than 100 57, 64 Laboratory test finding 02/29/2008 Prealbumin 21.5 mg/dL 18-38 57, 65 Liver Function Panel 02/29/2008 Total Protein 6.8 GM/DL 6.2-8.1 57 Albumin 3.5 GM/DL Low 3.6-5.4 57 Globulin 3.3 GM/DL 2-4 57 Albumin/Globulin Ratio 1.1 1-3 57 Bilirubin Total 1.4 mg/dL 0.4-1.5 57 Bilirubin Direct 0.2 mg/dL 0.1-0.5 57 Indirect Bilirubin 1.2 mg/dL High 0.1-0.75 57 Alkaline Phosphatase 93 U/L 39-117 57 Alt (SGPT) 28 U/L 17-63 57 Ast (Sgot) 28 U/L 12-42 57 1 Acting Section Chief: [id number] 2 SEE RESULT BELOW Name: JOHNSON TOMLIN : [address]: Ko Sparks MD Acct: [id number] Unit: [id number] AGE: 32 Location: [facility] Re03/06/18 SEX: M Status: REG REF SPEC: [id number] BOBBY: 03/06/[address] [facility] [address]: Ko Sparks MD REQ: [id number] RECD: 03/06/18 STATUS: COMP _ SOURCE: NASAL SPDESC: ORDERED: Marleni Camarena Request COMMENTS: [id number] Procedure Result Reported Site Rapid Influenza A B Request Final 03/06/18- 1319 ML Specimen received for Influenza A/B Molecular testing * ML - Main Lab . END OF REPORT DEPARTMENT OF PATHOLOGY, [address] [place] [address] Mathieu New M.D. Director [facility] # [id number] 3 Desirable: <150 Borderline High: 150-199 High: 200-499 Very High: >500 4 Desirable: <200 Borderline High: 200-239 High: >239 5 Low: <40 Desirable: 40-60 High: >60 6 Desirable: <100 Near Optimal: 100-129 Borderline High: 130-159 High: 160-189 Very High: >189 7 PT IS NOT FASTING 8 Because ethnic data is not always readily available, this report includes an eGFR for both -Americans and non- Americans. The National Kidney Disease Education Program (NKDEP) does not endorse the use of the MDRD equation for patients that are not between the ages of 18 and 70, are , have extremes of body size, muscle mass, or nutritional status, or are non- or non-. According to the National Kidney Foundation, irrespective of diagnosis, the stage of the disease is based on the level of kidney function: Stage Description GFR(mL/min/1.73 m(2)) 1 Kidney damage with normal or decreased GFR 90 2 Kidney damage with mild decrease in GFR 60-89 3 Moderate decrease in GFR 30-59 4 Severe decrease in GFR 15-29 5 Kidney failure <15 (or dialysis) 9 ADDITIONAL INFORMATION This test was developed and its performance characteristics determined by [facility] in a manner consistent with CLIA requirements. This test has not been cleared or approved by the U.S. Food and Drug Administration. Test Performed by: [facility] [address] [place] [address] 10 Acute inflammation: >10.00 11 Because ethnic data is not always readily available, this report includes an eGFR for both -Americans and non- Americans. The National Kidney Disease Education Program (NKDEP) does not endorse the use of the MDRD equation for patients that are not between the ages of 18 and 70, are , have extremes of body size, muscle mass, or nutritional status, or are non- or non-. According to the National Kidney Foundation, irrespective of diagnosis, the stage of the disease is based on the level of kidney function: Stage Description GFR(mL/min/1.73 m(2)) 1 Kidney damage with normal or decreased GFR 90 2 Kidney damage with mild decrease in GFR 60-89 3 Moderate decrease in GFR 30-59 4 Severe decrease in GFR 15-29 5 Kidney failure <15 (or dialysis) 12 Because ethnic data is not always readily available, this report includes an eGFR for both -Americans and non- Americans. The National Kidney Disease Education Program (NKDEP) does not endorse the use of the MDRD equation for patients that are not between the ages of 18 and 70, are , have extremes of body size, muscle mass, or nutritional status, or are non- or non-. According to the National Kidney Foundation, irrespective of diagnosis, the stage of the disease is based on the level of kidney function: Stage Description GFR(mL/min/1.73 m(2)) 1 Kidney damage with normal or decreased GFR 90 2 Kidney damage with mild decrease in GFR 60-89 3 Moderate decrease in GFR 30-59 4 Severe decrease in GFR 15-29 5 Kidney failure <15 (or dialysis) 13 Acute inflammation: >10.00 14 Because ethnic data is not always readily available, this report includes an eGFR for both -Americans and non- Americans. The National Kidney Disease Education Program (NKDEP) does not endorse the use of the MDRD equation for patients that are not between the ages of 18 and 70, are , have extremes of body size, muscle mass, or nutritional status, or are non- or non-. According to the National Kidney Foundation, irrespective of diagnosis, the stage of the disease is based on the level of kidney function: Stage Description GFR(mL/min/1.73 m(2)) 1 Kidney damage with normal or decreased GFR 90 2 Kidney damage with mild decrease in GFR 60-89 3 Moderate decrease in GFR 30-59 4 Severe decrease in GFR 15-29 5 Kidney failure <15 (or dialysis) 15 Acute inflammation: >10.00 16 Test Performed by: [place] [address] Product Evangelist: Jose A Maciel II, M.D., Ph.D. 17 Test Performed by: [place] [address] Product Evangelist: Jose A Maciel II, M.D., Ph.D. 18 Test Performed by: [place] [address] Product Evangelist: Hillary Grimaldo, Ph.D. 19 ADDITIONAL INFORMATION Units of measurement are: nmol Bone Collagen Equivalents/mmol Creatinine 20 Test Performed by: [place] [address] Product Evangelist: Jose A Maciel II, M.D., Ph.D. 21 Test Performed by: [place] [address] Product Evangelist: Jose A Maciel II, M.D., Ph.D. 22 Test Performed by: [place] [address] Product Evangelist: Jose A Maciel II, M.D., Ph.D. 23 Because ethnic data is not always readily available, this report includes an eGFR for both -Americans and non- Americans. The National Kidney Disease Education Program (NKDEP) does not endorse the use of the MDRD equation for patients that are not between the ages of 18 and 70, are , have extremes of body size, muscle mass, or nutritional status, or are non- or non-. According to the National Kidney Foundation, irrespective of diagnosis, the stage of the disease is based on the level of kidney function: Stage Description GFR(mL/min/1.73 m(2)) 1 Kidney damage with normal or decreased GFR 90 2 Kidney damage with mild decrease in GFR 60-89 3 Moderate decrease in GFR 30-59 4 Severe decrease in GFR 15-29 5 Kidney failure <15 (or dialysis) 24 Test Performed by: [place] [address] Product Evangelist: Hillary Atwood, Ph.D. 25 ADDITIONAL INFORMATION Units of measurement are: nmol Bone Collagen Equivalents/mmol Creatinine 26 URINE RADOM 27 Test Performed by: [place] [address] Product Evangelist: Tino Villa M.D. 28 Test Performed by: [place] [address] Product Evangelist: Tino Villa M.D. 29 Test Performed by: [place] [address] Product Evangelist: Hillary Atwood, Ph.D. 30 Test Performed by: [place] [address] Product Evangelist: Hillary Atwood, Ph.D. 31 REFERENCE VALUE 25-HYDROXY D TOTAL (D2+D3) Optimum levels in the healthy population are 20-50, patients with bone disease may benefit from higher levels within this range. Test Performed by: [place] [address] Product Evangelist: Tino Villa M.D. 32 Because ethnic data is not always readily available, this report includes an eGFR for both -Americans and non- Americans. The National Kidney Disease Education Program (NKDEP) does not endorse the use of the MDRD equation for patients that are not between the ages of 18 and 70, are , have extremes of body size, muscle mass, or nutritional status, or are non- or non-. According to the National Kidney Foundation, irrespective of diagnosis, the stage of the disease is based on the level of kidney function: Stage Description GFR(mL/min/1.73 m(2)) 1 Kidney damage with normal or decreased GFR 90 2 Kidney damage with mild decrease in GFR 60-89 3 Moderate decrease in GFR 30-59 4 Severe decrease in GFR 15-29 5 Kidney failure <15 (or dialysis) 33 Because ethnic data is not always readily available, this report includes an eGFR for both -Americans and non- Americans. The National Kidney Disease Education Program (NKDEP) does not endorse the use of the MDRD equation for patients that are not between the ages of 18 and 70, are , have extremes of body size, muscle mass, or nutritional status, or are non- or non-. According to the National Kidney Foundation, irrespective of diagnosis, the stage of the disease is based on the level of kidney function: Stage Description GFR(mL/min/1.73 m(2)) 1 Kidney damage with normal or decreased GFR 90 2 Kidney damage with mild decrease in GFR 60-89 3 Moderate decrease in GFR 30-59 4 Severe decrease in GFR 15-29 5 Kidney failure <15 (or dialysis) 34 COLLECTED FROM 11/06/11 1000 THROUGH 11/07/11 1000. PATIENT HAD BLOOD DRAWN 11/07/11 17:10 MZAVALA DMOL 35 Test Performed by: [place] [id number] Product Evangelist: Aren Cain III, M.D. 36 Test Performed by: [facility] [place] [address] Product Evangelist: Hillary Atwood, Ph.D. 37 INFCE Result Units: nmol/mmol Units of measurement are: nmol Bone Collagen Equivalents/mmol Creatinine Test Performed by: [facility] [address], [place] [address] Product Evangelist: Hillary Atwood, Ph.D. 38 CHOLESTEROL INTERPRETATION: Desirable: Less than 200 MG/DL Borderline-High Risk: 200-239 MG/DL High-Risk: 240 MG/DL and over 39 HDL INTERPRETATION: Undesirable: High Risk: Less than 40 MG/DL Desirable: Low Risk: Greater than 60 MG/DL 40 LDL INTERPRETATION: Low Risk Optimal Level: LDL Less than 100 MG/DL Near or Above Optimal: LDL 100-129 MG/DL Borderline High Risk: LDL 130-159 MG/DL High Risk: LDL 160-189 MG/DL Very High Risk: LDL Greater than 189 MG/DL 41 Anion gap measurement may be of limited value in the presence of any alkalosis, especially in a combined acid base disorder. . 42 Because ethnic data is not always readily available, this report includes an eGFR for both -Americans and non- Americans. The National Kidney Disease Education Program (NKDEP) does not endorse the use of the MDRD equation for patients that are not between the ages of 18 and 70, are , have extremes of body size, muscle mass, or nutritional status, or are non- or non-. According to the National Kidney Foundation, irrespective of diagnosis, the stage of the disease is based on the level of kidney function: Stage Description GFR(mL/min/1.73 m(2)) 1 Kidney damage with normal or decreased GFR 90 2 Kidney damage with mild decrease in GFR 60-89 3 Moderate decrease in GFR 30-59 4 Severe decrease in GFR 15-29 5 Kidney failure <15 (or dialysis) 43 Test Performed by: [facility] Dpt of Lab Med and Pathology [address] [place] [address] Product Evangelist: Aren Cain III, M.D. 44 INFCE Result Units: nmol/mmol Units of measurement are: nmol Bone Collagen Equivalents/mmol Creatinine Test Performed by: [facility] Dpt of Lab Med and Pathology [address] [place] [address] Product Evangelist: Aren Cain III, M.D. 45 Test Performed by: [facility] Dpt of Lab Med and Pathology [address] [place], [place] [id number] Product Evangelist: Aren Cain III, M.D. 46 Interpretation: 10-24 (mild to moderate deficiency) -- REFERENCE VALUE -- 25-HYDROXY D TOTAL (D2+D3) Optimum levels in the normal population are 25-80 Test Performed by: [facility] Dpt of Lab Med and Pathology [address] [place], [place] [id number] Product Evangelist: Aren Cain III, M.D. 47 Please note change in reference range effective 08 . 48 A metabolite of Naproxen, O-desmethylnaproxen, has been shown to interfere with the Jendrassik-Danica method for measuring total bilirubin. Samples from patients who have taken Naproxen have shown spurious elevation in total bilirubin levels. 49 Please note updated reference range, effective 11/19/09 50 Lymphopenia % 51 Anion gap measurement may be of limited value in the presence of any alkalosis, especially in a combined acid base disorder. . 52 Note change in reference range as of 12/20/07. The change was based on recommendations from the [place] [employer]. 53 Because ethnic data is not always readily available, this report includes an eGFR for both -Americans and non- Americans. The National Kidney Disease Education Program (NKDEP) does not endorse the use of the MDRD equation for patients that are not between the ages of 18 and 70, are , have extremes of body size, muscle mass, or nutritional status, or are non- or non-. According to the National Kidney Foundation, irrespective of diagnosis, the stage of the disease is based on the level of kidney function: Stage Description GFR(mL/min/1.73 m(2)) 1 Kidney damage with normal or decreased GFR 90 2 Kidney damage with mild decrease in GFR 60-89 3 Moderate decrease in GFR 30-59 4 Severe decrease in GFR 15-29 5 Kidney failure <15 (or dialysis) 54 CHOLESTEROL INTERPRETATION: Desirable: Less than 200 MG/DL Borderline-High Risk: 200-239 MG/DL High-Risk: 240 MG/DL and over 55 HDL INTERPRETATION: Undesirable: High Risk: Less than 40 MG/DL Desirable: Low Risk: Greater than 60 MG/DL 56 LDL INTERPRETATION: Low Risk Optimal Level: LDL Less than 100 MG/DL Near or Above Optimal: LDL 100-129 MG/DL Borderline High Risk: LDL 130-159 MG/DL High Risk: LDL 160-189 MG/DL Very High Risk: LDL Greater than 189 MG/DL 57 FASTING 58 Lymphopenia % 59 Anion gap measurement may be of limited value in the presence of any alkalosis, especially in a combined acid base disorder. . 60 Note change in reference range as of 12/20/07. The change was based on recommendations from the [place] [employer]. 61 Please note change in reference range effective 07 . 62 CHOLESTEROL INTERPRETATION: Desirable: Less than 200 MG/DL Borderline-High Risk: 200-239 MG/DL High-Risk: 240 MG/DL and over 63 HDL INTERPRETATION: Undesirable: High Risk: Less than 40 MG/DL Desirable: Low Risk: Greater than 60 MG/DL 64 LDL INTERPRETATION: Low Risk Optimal Level: LDL Less than 100 MG/DL Near or Above Optimal: LDL 100-129 MG/DL Borderline High Risk: LDL 130-159 MG/DL High Risk: LDL 160-189 MG/DL Very High Risk: LDL Greater than 189 MG/DL 65 Please note the change in Reference Range effective 2003 . Procedures Date CPT Code Description Status 09/25/2014 Bone Mineral Density Test Completed 10/22/2012 31937 Rad Exam; Foot Limited Completed 10/22/2012 25749 Rad Exam; Foot Limited Completed 10/22/2012 20617 Rad Exam; Ankle Comp Completed 10/22/2012 77233 Rad Exam; Ankle Comp Completed 10/22/2012 37766 Rad Exam; Pelvis Completed 04/09/2010 Bone Mineral Density Test Completed Encounters Type Date Location Provider CPT E/M Dx Office Visit 02/20/2018 [facility] [address] J47.9 3:30p [facility] [employer] Z93.0 Office Visit 01/02/2018 11:30a [facility] [place] [address] M21.541 C.M.A. M21.542 M21.171 M21.172 Q66.1 Office Visit 12/25/2017 11:00a [facility] [place] [address] M21.541 C.M.A. M21.542 M67.01 M67.02 Q66.1 Office Visit 11/23/2017 3:00p [facility] Sejal Howe, 36691 J02.9 - Angelo Garcia Office Visit 10/23/2017 12:40p [facility] Td Moore, 29799 K57.30 - [place] Jl Garcia,FACP Office Visit 08/30/2017 3:00p [facility] Arnold Pabon, PEDIATRIC RADIOLOGIST [address] R10.[address] K57.31 K62.5 Office Visit 08/17/2017 3:30p [facility] [place] [address] J47.9 [facility] Z93.0 J18.9 Office Visit 05/30/2017 3:00p [facility] [address] J47.9 [facility] J18.9 Office Visit 05/10/2017 3:40p [facility] Td Moore, 00982 H92.02 Medicine - [place] Jl Garcia,FACP R63.4 H72.92 Office Visit 04/17/2017 3:30p [facility] [address] J18.9 [facility] J47.9 J95.00 Office Visit 04/12/2017 2:10p [facility] - Radha Caputo, TECHNICAL OPERATIONS SPECIALIST [address] Z93.0 Office Visit 02/23/2017 3:15p [facility] [place] [address] J47.9 [facility] J95.00 Office Visit 07/28/2016 9:20a [facility] Ko Sparks, [address] J06.[address] - [address] [place] Office Visit 07/26/2016 3:45p Pul[facility] [place] [address] J47.9 [facility] J95.00 Office Visit 06/29/2016 3:00p [facility] Medicine Td Moore, [address] K62.5 - [place] Garcia,FACP K57.31 Office Visit 10/21/2015 9:15a [facility] [place] [address] J47.1 [facility] J98.4 J95.00 Office Visit 10/20/2015 4:00p [facility] Ko Sparks, [address] J20[address] M.D. Office Visit 09/08/2015 3:15p Pul[facility] [place] [address] J47.9 Services Of [employer] J95.00 Office Visit 05/18/2015 10:40a [facility] [place] [address] R07.89 H61.23 Office Visit 03/06/2015 1:20p [facility] - Keegan Cruz M.D. [address] Office Visit 02/25/2015 3:30p Pul[facility] [place] [address] J47.9 [facility] J95.09 J39.8 Office Visit 08/22/2014 2:00p Pul[facility] [place] [address] 494.0 [facility] 518.89 519.00 Office Visit 05/14/2014 3:40p [facility] Josue Menjivar, 19887 922.1 - [facility] Office Visit 03/04/2014 2:40p [facility] Josue Menjivar 88537 382.9 - [facility] Office Visit 05/13/2013 2:20p [facility] Josue Menjivar 52994 382.9 - [facility] [place] Office Visit 03/18/2013 2:20p [facility] Josue Menjivar, 48185 466.0 - [facility] [place] Office Visit 03/12/2013 9:30a [facility] Td Moore, 79632 466.0 - [place],[facility] Office Visit 02/04/2013 4:00p [facility] Josue Menjivar, 97896 466.0 - [facility] [place] Office Visit 10/22/2012 11:15a [facility] Krueger, 13485 754.70 C.M.AGlo Garcia 754.30 738.6 726.71 736.73 Office Visit 03/13/2012 1:00p [facility] Minerva Live, N.P. 23321 466.0 - Angelo 789.04 Office Visit 03/02/2012 11:40a [facility] Td Moore, 16689 466.0 - Angel[place] Garcia,FACP Office Visit 08/24/2011 9:50a [facility] TdVadim Moore, 21777 466.0 - Angel[place] Garcia,FACP Office Visit 05/30/2011 10:50a [facility] TdVadim Moore, 73483 V70.0 - Angel[place] Garcia,FACP 569.3 733.00 V44.1 Office Visit 03/16/2011 8:00a DO Not Use [employer] AT Ko Sparks M.D. 64456 569.3 [facility] 530.81 564.09 Office Visit 04/02/2010 2:00p DO Not Use [employer] AT Td Moore, 35549 V70.0 [place],FACP 518.89 733.00 Office Visit 06/01/2009 2:45p DO Not Use [employer] AT Erna Mittal M.D. 12935 478.9 [facility] Office Visit 02/27/2008 9:20a DO Not Use [employer] AT Td Moore, 38210 V70.0 [place],FACP 518.89 742.2 783.21 V04.81 v04.81 Office Visit 06/05/2007 2:30p DO Not Use [employer] AT [facility] [place] [address] 486 Plan of Care Future Appointment(s):08/23/2018 3:30 pm - Awilda Dowling MD at [facility]03/06/2018 - Ko Sparks M.D.J06.9 Acute upper respiratory infection, unspecifiedComments:Use Tylenol syrup as needed. If the symptoms does not improve or if it gets worse to call back.
--- OUTSIDE RECORDS SUMMARY | 2018-03-17 16:14 | XMS REPORT ---
:1985 External Reference #:[id number] Author Organization [facility] Address [address] [place] [address] [place] [address] Phone [phone] Care Team Providers Name Role Phone Td Moore MD Primary Care Physician Unavailable Payers Type Date Identification Numbers Payment Provider Subscriber Commercial Expires: 2011 Policy Number: [id number] BS Options Tyler Tomlin PayID: [id number] [address] [address] [place] [address] Medigap Part B Effective: 2002 Policy Number: BS Of [place] Johnson Tomlin [id number] Expires: 2009 PayID: [id number] [address] [address] [place] [address] Medigap Part B Policy Number: [id number] BS Facets Johnson Tomlin PayID: [id number] [address] [address] [place] [address] Advance Directives Type Date Description Status Comment Other Directive 11/08/2017 Health Care Proxy Current and Verified Problems Date Description Provider Status Onset: 01/01/2016 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 Moore Active hydrocephalus Jose,FACP Onset: 03/16/2011 Disorder of lung Vianey Sanchez M.D.,FACP Onset: 03/16/2011 Osteoporosis Vianey Sacnhez M.D.,FACP Onset: 03/16/2011 Reduction deformities of brain [...] Single Lives With Mother And Father 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 Cigarette Use Never Smoked Cigarettes ETOH Use [...] directed dx Deb Moore, Gastrostomy code: v44.1 M.Deb,[facility] Feeding Tube Kit/[id number] Calcium 03/16 Active Suspension 1250mg/5M 1 tsp bid Ko Carbonate L Jose Sparks Calcitriol 07/13 Active Capsules 0.25mcg po qd Td Deb Moore M.D.,[facility] 18F Gastrostomy Active 1unit use as Td Tube /0000 s directed nupur Garrison M.D.,[facility] Benefiber Active Powder 3 teaspoons Unknown /0000 [...] day Deb Moore, - x 7 days M.DGlo,[facility] 11/03 Ciprofloxacin 10/23 Hx Suspension 500mg/5ML 100ml 5ml by Rec (10%) twice daily Deb Moore, - for 7 days Krista.DGlo,[facility] 10/27 Metronidazole 10/23 Hx Tablets 250mg 21tab three times Td s a day for 7 Deb Moore, - days by Jose,[facility] 10/30 Metronidazole 08/31 Hx Tablets 250mg 21tab three times Zsofia s a day for 7 Cm, - days by [facility] 10/23 Ciprofloxacin 08/31 Hx Tablets 500mg 14tab si Zsofia HCL s twice a day Cm, - x 7 days [facility] 09/07 Nebusal 05/30 Hx Nebulizer 3% 240ml 1 unit J47.9 Awilda /2018 twice daily Josey, - for 2 weeks 08/16 Ciprofloxacin 04/13 Hx Tablets 500mg 14tab one tab Radha HCL s twice a day Caputo, - may crush [employer] 05/10 Prednisone 02/24 Hx Solution 5mg/5ML 360ml 30 milliliters Josey, - for 4 days, 04/12 milliliters for 4 days, 20 milliliters for 4 days, 15 milliliters for 4 days, 10ml for 4 days Ciprofloxacin 02/24 Hx Suspension 500mg/5ML 100ml 5ml by Rec (10%) mouth twice Caputo, - daily for [employer]ACHINE [employer]ENDER 04/13 Prednisone 02/23 Hx Tablets 10mg 42tab 30mg daily J47.9 s for 1 week, Josey, - 20mg daily 02/24 for 1 week, 10 mg daily for 1 week Ciprofloxacin 02/23 Hx Tablets 750mg 20tab 1 by mouth J47.9 Awilda HCL s twice a day Josey, - for 10 days 05/10 Azithromycin 07/28 Hx Tablets 250mg 6tabs 2 tab today J06.9 Grimsley and then Pachikara - 1tab daily , M.D. 02/22 Ciprofloxacin 07/01 Hx Tablets 500mg 14tab si Td HCL s twice a day Deb Moore, - x 7 days M.D.,[facility] 07/08 Ciprofloxacin 06/29 Hx Suspension 500mg/5ML 80uni 5 Rec (10%) ts milliliters DGlo Moore, - drop twice M.D.,[facility] 07/01 a day for week Metronidazole 06/29 Hx Tablets 250mg 21tab three times s a day for 7 D. Teresa, - days by gt M.D.,FACP 07/06 Sodium Chloride 04/08 Hx Solution 0.9% 300ml 3 milliliters Caputo, - for toilet [employer]ACHINE [employer] 01/15 flush times a day prn Saline Flush 04/07 Hx Solution 0.9% 250ml 5-10cc for Awilda /2016 pulmonary Josey, - iesha 4 04/08 times a day Albuterol 10/20 Hx Nebulizer (2.5mg/3M 4unit 1 unit nebl J47.1 Awilda Sulfate L) 0.083% s every 6 Josey, - hours as 02/22 needed (not taking) Amoxicillin 10/19 Hx Suspension 250mg/5ML 200ml 10ml biid x Grimsley Rec 10 days Bridger Gipson M.D. 06/29 Pulmicare 09/06 Hx 300un Not using its currently Ojsey, - 7-8 06/29 cans/ /2016 Saline 09/06 Hx as needed to trach - 04/06 Jevity 1.5 Matthew 08/04 Hx Liquid 6/day gt Td Brandan Garrison M.D.,FACP 09/06 Azithromycin 05/18 Hx Suspension 200mg/5ML 45ml 12.5ml on Rec day 1, then Persian, - 7.5ml on [employer] 05/23 day 2-5 via g-tube then stop Levofloxacin 03/06 Hx Solution 25mg/ml 140ml 20ml by mouth daily Cruz, - for 7 days M.D. 05/18 (Please call Olivera[facility] on [facility] for insurance information per Arturo sigala [facility]) Mucinex 03/06 Hx Tablets ER 600mg 14tab [...] 466.0 its for 7 days Brandan Garrison M.D.,[facility] 03/13 Clarithromycin 08/23 Hx Suspension 250mg/5ML 150ml [...] gt ML once a week Brandan Garrison M.D.,[facility] 03/16 Augmentin 06/08 Hx Suspension 250/5ML 300ml 10 ml tid x 486 Rec 10 days Brandan Garrison M.D.,[facility] 02/26 Levaquin 06/05 Hx Tablets 500mg 10tab 1 po qd x 486 s 10days Brandan Garrison M.D.,[facility] 06/08 Pulmozyme Hx Solution 1mg/ml Brandan Garrison M.D.,[facility] 04/02 Pulmicort 00 Hx bid Brandan Garrison M.D.,[facility] 03/16 Zithromax 00/00 Hx every other day Brandan Garrison M.D.,[facility] 12/10 Albuterol 00/ Hx Brandan Garrison M.D.,[facility] 03/16 Zithromax 00/00 Hx Solution Rec 500mg D/C 'd 0000 until - augmentin 03/04 10 ml every other day Zithromax 00/00 Hx - 08/22 Medications Administered in Office Medication Date Status Form Strength Qnty SIG Indications Ordering Provider Influenza Administered Injection Unknown Virus Vaccine 016 Influenza Administered Injection Unknown Virus Vaccine 014 Immunizations CPT Code Status Date Vaccine Lot # [id number] Given 02/15/2017 Influenza Virus Vaccine, Quadrivalent, Split, Preservative Free Q2035 Given 02/18/2013 Afluria Vaccine 10056 Given 02/08/2012 Influenza Virus 3Yrs & Over 31441 Given 02/15/2011 Influenza Virus 3Yrs & Over 94154 Given 02/07/2010 Influenza Virus 3Yrs & Over 12439 Given 02/27/2008 Influenza Virus 3Yrs & Over 70284 Given 03/31/2006 Pneumovax (History By Patient) 138iu Vital Signs Date Vital Result Comment 02/20/2018 Height 66.5 inches 5'6.50" Weight 118.00 [...] Test Date Test Result H/L Range Note Laboratory test finding 11/23/2017 Rapid Group A Strep negative Lipid Profile (Trig/Chol/HDL) 11/06/2017 Triglycerides 114 mg/dL 1 Cholesterol 121 mg/dL 2 HDL Cholesterol 37.7 mg/dL 3 LDL Cholesterol 61 mg/dL 4 Laboratory test finding 11/06/2017 Vitamin D Total 25(Oh) 24.5 ng/mL 20- 50 5 Pthi 11/06/2017 Calcium (PTH Intact) 9.3 mg/dL [...] Egfr Non- 151.3 >60 Egfr 183.1 >60 6 Laboratory test finding 11/06/2017 Prealbumin 23 mg/dL 18-38 Vitamin D, 1,25 Dihydroxy 33 pg/mL 18-64 7 Comp Metabolic Panel 08/30/2017 Sodium 142 mmol/L [...] Egfr Non- 125.3 >60 Egfr 161.2 >60 8 Laboratory test finding 08/30/2017 Lipase 56 U/L 11.0-82.0 Amylase 41 U/L 29-103 C Reactive Protein 16.70 mg/L High < 5.00 9 CBC Auto Diff 08/30/2017 White Blood [...] 0-2 Nucleated Red Blood Cells % 0 CBC Auto Diff 06/29/2016 White Blood Count [...] Egfr Non- 134.6 >60 Egfr 173.1 >60 10 Iron & Iron Binding Capacity 06/29/2016 Iron 31 g/dL Low 50-212 Unsaturated Iron Binding 362 g/dL Total Iron Binding Capacity 393 g/dL 250-450 % Iron Saturation 8 % Low 15-55 Laboratory test finding 06/29/2016 C Reactive Protein 20.96 mg/L High < 5.00 11 CBC Auto Diff 10/30/2015 White Blood Count [...] Egfr Non- 153.4 >60 Egfr 197.2 >60 12 Laboratory test finding 10/30/2015 Prealbumin 22 mg/dL 18-38 C Reactive Protein 9.96 mg/L High < 5.00 13 Vitamin D Total 25(Oh) 21.6 ng/mL Low 30-50 Osteocalcin 26 ng/mL 9 - 42 14 Alp Bone Isoenzymes 16 g/L 0-20 15 NTX (N-Telopeptide) Urine 10/30/2015 Urine Creatinine 134 mg/dL 16 NTX 329 nmol/L Ur NTX-Telo 28 nmol/mmol 21 - 66 17 Laboratory test finding 10/30/2015 Vitamin D, 1,25 42 pg/mL 18-64 18 Dihydroxy Laboratory test finding 04/16/2015 TSH (Thyroid Stim Horm) 2.84 ?IU/mL 0.34-5.60 Vitamin D Total 25(Oh) 23.5 ng/mL Low 30-50 Osteocalcin 29 ng/mL 9 - 42 19 Alp Bone Isoenzymes 20 g/L 0-20 20 Comp Metabolic Panel 04/16/2015 Sodium 139 mmol/L [...] Egfr Non- 169.0 >60 Egfr 217.3 >60 21 NTX (N-Telopeptide) Urine 04/11/2014 Urine Creatinine 189 mg/dL 22 NTX 611 nmol/L Ur NTX-Telo 37 nmol/mmol 21 - 66 23 Laboratory test finding 04/08/2014 Alp Bone Isoenzymes 16 g/L 0-20 24 , 25 Osteocalcin 21 ng/mL 9 - 42 24, 26 Vitamin A (Retinol) 38.6 g/dL 32.5-78.0 24, 27 Vitamin E Level 11.4 mg/L 5.5 - 17.0 24, 28 Vitamin D, 25 Hydroxy 04/08/2014 25-Hydroxy Vitamin D2 <4.0 ng/mL 24 25-Hydroxy Vitamin D3 26 ng/mL 24 25-Hydroxy Vitamin D Total 26 ng/mL 24, 29 Comp Metabolic Panel 04/08/2014 Sodium 137 mmol/L 133-145 24 Potassium 3.3 mmol/L Low 3.5-5.0 24 Chloride 107 mmol/L 101-111 24 Co2 Carbon Dioxide 23 mmol/L 22-32 24 Anion Gap 7 mmol/L 2-11 24 Glucose 121 mg/dL High 70-100 24 Blood Urea Nitrogen 20 mg/dL 6-24 24 Creatinine 0.60 mg/dL Low 0.67-1.17 24 BUN/Creatinine Ratio 33.3 High 8-20 24 Calcium 9.4 mg/dL 8.6-10.3 24 Total Protein 7.4 g/dL 6.4-8.9 24 Albumin 4.2 g/dL 3.2-5.2 24 Globulin 3.2 g/dL 2-4 24 Albumin/Globulin Ratio 1.3 1-3 24 Total Bilirubin 2.10 mg/dL High 0.2-1.0 24 Alkaline Phosphatase 87 U/L 34-104 24 Alt 20 U/L 7-52 24 Ast 20 U/L 13-39 24 Egfr Non- 160.4 >60 24 Egfr 206.3 >60 24, 30 Basic Metabolic Panel 04/01/2013 Sodium 138 mmol/L 133-145 Potassium 4.0 mmol/L 3.5-5.0 Chloride 103 mmol/L 101-111 Co2 Carbon Dioxide 28.0 mmol/L 22-32 Anion Gap 7.0 mmol/L 2-11 Glucose 79 mg/dL 70-100 Blood Urea Nitrogen 20 mg/dL 6-24 Creatinine 0.60 mg/dL 0.50-1.40 BUN/Creatinine Ratio 33.3 High 8-20 Calcium 9.2 mg/dL 8.1-9.9 Egfr Non- 161.6 >60 Egfr 207.8 >60 31 Creatinine Clearance 04/01/2013 Urine Random Creatinine 134.3 mg/dL Creatinine 0.6 mg/dL 0.5-1.4 Creatinine Clearance 124 mL/min 97-137 Urine Collection Time 24 Urine Total Volume 800 mL Calcium 24HR Urine 04/01/2013 Urine Random Calcium 18.2 mg/dL Urine Calcium/24HR 145.6 mg/24Hr 50-400 Creatinine Clearance 11/07/2011 Creatinine Random Urine 144.9 mg/dL 32 Creat Clearance 129.9 mL/min High 80-125 32 Hours Of Collection 24 HR 24- 32 Urine Volume Measurement 775 ML 32 Calcium 24HR Urine 11/07/2011 Calcium Random Urine 16.0 mg/dL 32 Urine Calcium/24HR 124.0 MG/24HR 50-400 32 Laboratory test finding 11/07/2011 Alkaline Phosphatase Bone 17 g/L 0- 20 32, 33 Iso N-Telopeptide Urine 11/07/2011 Creatinine Urine 140 mg/dL () 32, 34 NTX 493 nmol/L () 32 NTX-Telopeptide, Ur 40 21 - 66 32, 35 Lipid Profile (Trig/Chol/HDL) 05/27/2011 Triglyceride 92 mg/dL 40-200 Cholesterol 138 mg/dL Less Than 200 36 High Density Lipoprotein 42 mg/dL 40-60 37 Cholesterol/HDL Ratio 3.29 AVERAGE 1-4.97 Low Density Lipoprotein 78 mg/dL Less Than 100 38 Basic Metabolic Panel 05/27/2011 Sodium 139 mmol/L 135-145 Potassium 4.1 mmol/L 3.5-5.0 Chloride 100 mmol/L Low 101-111 Co2 (Carbon Dioxide) 31.0 mmol/L 22-32 Anion Gap 8.0 mmol/L 2-11 39 Glucose 84 mg/dL 70-100 BUN 14 mg/dL 6-24 Creatinine 0.7 mg/dL 0.50-1.40 One Over Creatinine 1.42 BUN/Creatinine Ratio 20.0 8-20 Calcium 9.4 mg/dL 8.1-9.9 eGFR Non- 137.4 > 60 eGFR 176.7 > 60 40 Calcium 24HR Urine 10/16/2010 Calcium Random Urine 16.8 mg/dL Urine Calcium/24HR 117.6 MG/24HR 50-400 Hours Of Collection 24 HR 24- Urine Volume Measurement 700 ML Laboratory test finding 10/16/2010 Alkaline Phosphatase Bone Iso 16 g/L 0-20 41 N-Telopeptide Urine 10/16/2010 Creatinine Urine 124 mg/dL () NTX 404 nmol/L () NTX-Telopeptide, Ur 37 21-66 42 Laboratory test finding 10/16/2010 Osteocalcin 25 ng/mL 9-42 43 Vitamin D, 25 Hydroxy 05/07/2010 25-Hydroxy Vitamin D2 <4.0 ng/mL () 25-Hydroxy Vitamin D3 24 ng/mL () 25-Hydroxy Vitamin D Total 24 ng/mL () 44 PTH Intact, Inc Total Calcium 05/07/2010 PTH Intact 10.7 PMOL/L High 1.3- 9.3 Calcium For Pthi 9.2 mg/dL 8.1-9.9 45 Manual Differential 03/30/2010 Polysegmented Neutrophil 67 % [...] 1-3 Bilirubin Total 1.6 mg/dL High 0.4-1.5 46 Bilirubin Direct 0.3 mg/dL 0.1-0.5 Indirect Bilirubin 1.3 mg/dL High 0.3-1.0 47 Alkaline Phosphatase 91 U/L 39-117 Alt (SGPT) [...] 150-450 Mean Platelet Volume 10.4 um3 7.4-10.4 48 Basic Metabolic Panel 03/30/2010 Sodium 136 mmol/L 135-145 Potassium 3.8 mmol/L 3.5-5.0 Chloride 101 mmol/L 101-111 Co2 (Carbon Dioxide) 29.0 mmol/L 22-32 Anion Gap 6.0 mmol/L 2-11 49 Glucose 91 mg/dL 70-100 50 BUN 18 mg/dL 6-24 Creatinine 0.60 mg/dL 0.50-1.40 One Over Creatinine 1.60 BUN/Creatinine Ratio 30.0 High 8-20 Calcium 9.3 mg/dL 8.1-9.9 eGFR Non- 175.9 > 60 eGFR 212.9 > 60 51 Lipid Profile (Trig/Chol/HDL) 03/30/2010 Triglyceride 53 mg/dL 40-200 Cholesterol 133 mg/dL Less Than 200 52 High Density Lipoprotein 36 mg/dL Low 40-60 53 Cholesterol/HDL Ratio 3.69 AVERAGE 1-4.97 Low Density Lipoprotein 86 mg/dL Less Than 100 54 CBC With Electronic Diff 02/29/2008 White Blood Count 7.1 CUMM 4.8-10.8 55 Red Cell Count 4.78 CUMM 4.6-6.2 55 Hemoglobin 14.4 g/dL 14.0-18.0 55 Hematocrit 42 % 42-52 55 Mean Corpuscular Volume 89 um3 80-94 55 Mean Corpuscular Hemoglob 30 pg 27-31 55 Mean Corpuscular HGB Cone 34 g/dL 32-36 55 Redcell Distribution WDTH 15 % 10.5-15 55 Platelet Count 235 CUMM 150-450 55 Mean Platelet Volume 9.9 um3 7.4-10.4 55 Gran % 65.2 % 38-83 55 Lymph % 19.9 % Low 20-45 55 Mononuclear % 7.4 % 1-9 55 Eosinophil % 6.8 % High 0-6 55 Basophil % 0.7 % 0-2 55 Abs Lymphs 1.4 1.0-4.8 55 Abs Mononuclear 0.5 0-0.8 55 Absolute Neutrophil Count 4.6 1.5-7.7 55 Abs Eosinophils 0.5 0-0.6 55 Abs Basophils 0 0-0.2 55, 56 Basic Metabolic Panel 02/29/2008 Sodium 140 mmol/L 135-145 55 Potassium 4.1 mmol/L 3.5-5.0 55 Chloride 106 mmol/L 101-111 55 Co2 (Carbon Dioxide) 29.0 mmol/L 22-32 55 Anion Gap 5.0 mmol/L 2-11 55, 57 Glucose 90 mg/dL 70-100 55, 58 BUN 18 mg/dL 6-24 55 Creatinine 0.57 mg/dL 0.50-1.40 55 One Over Creatinine 1.70 55 BUN/Creatinine Ratio 31.6 High 8-20 55 Calcium 9.3 mg/dL 8.1-9.9 55, 59 Lipid Profile (Trig/Chol/HDL) 02/29/2008 Triglyceride 43 mg/dL 40-200 55 Cholesterol 114 mg/dL Less Than 200 55, 60 High Density Lipoprotein 39 mg/dL Low 40-60 55, 61 Cholesterol/HDL Ratio 2.92 AVERAGE 1-4.97 55 Low Density Lipoprotein 66 mg/dL Less Than 100 55, 62 Laboratory test finding 02/29/2008 Prealbumin 21.5 mg/dL 18-38 55, 63 Liver Function Panel 02/29/2008 Total Protein 6.8 GM/DL 6.2-8.1 55 Albumin 3.5 GM/DL Low 3.6-5.4 55 Globulin 3.3 GM/DL 2-4 55 Albumin/Globulin Ratio 1.1 1-3 55 Bilirubin Total 1.4 mg/dL 0.4-1.5 55 Bilirubin Direct 0.2 mg/dL 0.1-0.5 55 Indirect Bilirubin 1.2 mg/dL High 0.1-0.75 55 Alkaline Phosphatase 93 U/L 39-117 55 Alt (SGPT) 28 U/L 17-63 55 Ast (Sgot) 28 U/L 12-42 55 1 Desirable: <150 Borderline High: 150-199 High: 200-499 Very High: >500 2 Desirable: <200 Borderline High: 200-239 High: >239 3 Low: <40 Desirable: 40-60 High: >60 4 Desirable: <100 Near Optimal: 100-129 Borderline High: 130-159 High: 160-189 Very High: >189 5 PT IS NOT FASTING 6 Because ethnic data is not always readily [...] 15-29 5 Kidney failure <15 (or dialysis) 7 ADDITIONAL INFORMATION This test was developed and its performance characteristics determined by [facility] in a manner consistent with CLIA requirements. This test has not been cleared or approved by the U.S. Food and Drug Administration. Test Performed by: [facility] [address] [place] [address] 8 Because ethnic data is not always [...] 5 Kidney failure <15 (or dialysis) 9 Acute inflammation: >10.00 10 Because ethnic data is not always readily [...] 15-29 5 Kidney failure <15 (or dialysis) 11 Acute inflammation: >10.00 12 Because ethnic data is not always [...] (or dialysis) 13 Acute inflammation: >10.00 14 Test Performed by: [place] [address] [employer] Supervisor: Jose A Maciel II, M.D., Ph.D. 15 Test Performed by: [place] [address] [employer] Supervisor: Jose A Maciel II, M.D., Ph.D. 16 Test Performed by: [address], [place] [address] [employer] Supervisor: Hillary Grimaldo, Ph.D. 17 ADDITIONAL INFORMATION Units of measurement are: nmol Bone Collagen Equivalents/mmol Creatinine 18 Test Performed by: [place] [address] [employer] Supervisor: Jose A Maciel II, M.D., Ph.D. 19 Test Performed by: [place] [address] [employer] Supervisor: Jose A Maciel II, M.D., Ph.D. 20 Test Performed by: [place] [address] [employer] Supervisor: Jose A Maciel II, M.D., Ph.D. 21 Because ethnic data is not always readily [...] 15-29 5 Kidney failure <15 (or dialysis) 22 Test Performed by: [place] [facility] [address] [address] [employer] Supervisor: Hillary Atwood, Ph.D. 23 ADDITIONAL INFORMATION Units of measurement are: nmol Bone Collagen Equivalents/mmol Creatinine 24 URINE RADOM 25 Test Performed by: [place] [address] [employer] Supervisor: Tino Villa M.D. 26 Test Performed by: [place] [address] [employer] Supervisor: Tino Villa M.D. 27 Test Performed by: [place] [address] [employer] Supervisor: Hillary Atwood, Ph.D. 28 Test Performed by: [place] [address] [employer] Supervisor: Hillary Atwood, Ph.D. 29 REFERENCE VALUE 25-HYDROXY D TOTAL (D2+D3) Optimum levels in the healthy population are 20-50, patients with bone disease may benefit from higher levels within this range. Test Performed by: [place] [id number] [employer] Supervisor: Tino Villa M.D. 30 Because ethnic data is not always readily [...] 15-29 5 Kidney failure <15 (or dialysis) 31 Because ethnic data is not always readily [...] 15-29 5 Kidney failure <15 (or dialysis) 32 COLLECTED FROM 11/06/11 1000 THROUGH 11/07/11 1000. PATIENT HAD BLOOD DRAWN 11/07/11 17:10 MZAVALA DMOL 33 Test Performed by: [place] [address] [employer] Supervisor: Aren Cain III, M.D. 34 Test Performed by: [place] [address] [employer] Supervisor: Hillary Atwood, Ph.D. 35 INFCE Result Units: nmol/mmol Units of measurement are: nmol Bone Collagen Equivalents/mmol Creatinine Test Performed by: [place] [address] [employer] Supervisor: Hillary Atwood, Ph.D. 36 CHOLESTEROL INTERPRETATION: Desirable: Less than 200 MG/DL Borderline-High Risk: 200-239 MG/DL High-Risk: 240 MG/DL and over 37 HDL INTERPRETATION: Undesirable: High Risk: Less than 40 MG/DL Desirable: Low Risk: Greater than 60 MG/DL 38 LDL INTERPRETATION: Low Risk Optimal Level: LDL Less than 100 MG/DL Near or Above Optimal: LDL 100-129 MG/DL Borderline High Risk: LDL 130-159 MG/DL High Risk: LDL 160-189 MG/DL Very High Risk: LDL Greater than 189 MG/DL 39 Anion gap measurement may be of limited value in the presence of any alkalosis, especially in a combined acid base disorder. . 40 Because ethnic data is not always readily [...] 15-29 5 Kidney failure <15 (or dialysis) 41 Test Performed by: [facility] Dpt of Lab Med and Pathology [address] [place] [address] [employer] Supervisor: Aren Cain III, M.D. 42 INFCE Result Units: nmol/mmol Units of measurement are: nmol Bone Collagen Equivalents/mmol Creatinine Test Performed by: [facility] Dpt of Lab Med and Pathology [address] [place] [address] [employer] Supervisor: Aren Cain III, M.D. 43 Test Performed by: [facility] Dpt of Lab Med and Pathology [address] [place] [address] [employer] Supervisor: Aren Cain III, M.D. 44 Interpretation: 10-24 (mild to moderate deficiency) -- REFERENCE VALUE -- 25-HYDROXY D TOTAL (D2+D3) Optimum levels in the normal population are 25-80 Test Performed by: [facility] Dpt of Lab Med and Pathology [address] [place] [address] [employer] Supervisor: Aren Cain III, M.D. 45 Please note change in reference range effective 08 . 46 A metabolite of Naproxen, O-desmethylnaproxen, has been shown to interfere with the Jendrkaurik-Danica method for measuring total bilirubin. Samples from patients who have taken Naproxen have shown spurious elevation in total bilirubin levels. 47 Please note updated reference range, effective 11/19/09 48 Lymphopenia % 49 Anion gap measurement may be of limited value in the presence of any alkalosis, especially in a combined acid base disorder. . 50 Note change in reference range as of 12/20/07. The change was based on recommendations from the [place] [employer]. 51 Because ethnic data is not always readily [...] 15-29 5 Kidney failure <15 (or dialysis) 52 CHOLESTEROL INTERPRETATION: Desirable: Less than 200 MG/DL Borderline-High Risk: 200-239 MG/DL High-Risk: 240 MG/DL and over 53 HDL INTERPRETATION: Undesirable: High Risk: Less than 40 MG/DL Desirable: Low Risk: Greater than 60 MG/DL 54 LDL INTERPRETATION: Low Risk Optimal Level: LDL Less than 100 MG/DL Near or Above Optimal: LDL 100-129 MG/DL Borderline High Risk: LDL 130-159 MG/DL High Risk: LDL 160-189 MG/DL Very High Risk: LDL Greater than 189 MG/DL 55 FASTING 56 Lymphopenia % 57 Anion gap measurement may be of limited value in the presence of any alkalosis, especially in a combined acid base disorder. . 58 Note change in reference range as of 12/20/07. The change was based on recommendations from the [place] [employer]. 59 Please note change in reference range effective 07 . 60 CHOLESTEROL INTERPRETATION: Desirable: Less than 200 MG/DL Borderline-High Risk: 200-239 MG/DL High-Risk: 240 MG/DL and over 61 HDL INTERPRETATION: Undesirable: High Risk: Less than 40 MG/DL Desirable: Low Risk: Greater than 60 MG/DL 62 LDL INTERPRETATION: Low Risk Optimal Level: LDL Less than 100 MG/DL Near or Above Optimal: LDL 100-129 MG/DL Borderline High Risk: LDL 130-159 MG/DL High Risk: LDL 160-189 MG/DL Very High Risk: LDL Greater than 189 MG/DL 63 Please note the change in Reference Range effective 2003 . Procedures Date CPT Code Description Status 09/25/2014 Bone Mineral Density Test Completed 10/22/2012 03590 Rad Exam; Foot Limited Completed 10/22/2012 57584 Rad Exam; Foot Limited Completed 10/22/2012 70383 Rad Exam; Ankle Comp Completed 10/22/2012 34859 Rad Exam; Ankle Comp Completed 10/22/2012 41309 Rad Exam; Pelvis Completed 04/09/2010 Bone Mineral Density Test Completed Encounters Type Date Location Provider CPT E/M Dx Office Visit 01/02/2018 [facility] [place] [address] M21.541 11:30a C.M.A. M21.542 M21.171 M21.172 Q66.1 Office Visit 12/25/2017 11:00a [facility] [place] [address] M21.541 C.M.A. M21.542 M67.01 M67.02 Q66.1 Office Visit 11/23/2017 3:00p [facility] Internal Medicine Sejal Howe [address] J02.9 - Angelo Garcia Office Visit 10/23/2017 12:40p [facility] Internal Medicine Td Moore, [address] K57.30 - [place] Garcia,FACP Office Visit 08/30/2017 3:00p [facility] Internal Medicine Arnold Pabon, MEASUREMENT OPERATOR [address] [address]10[address] K57.31 K62.5 Office Visit 08/17/2017 3:30p [facility] [place] [address] J47.9 [facility] Z93.0 J18.9 Office Visit 05/30/2017 3:00p [facility] [place] [address] J47.9 [facility] J18.9 Office Visit 05/10/2017 3:40p [facility] Internal Td [place], [address] H92.02 Medicine - [place] Jl Garcia,FACP R63.4 H72.92 Office Visit 04/17/2017 3:30p [facility] [place] [address] J18.9 [facility] J47.9 J95.00 Office Visit 04/12/2017 2:10p [facility] Internal Medicine - Radha Caputo, DYAN [address] Z93.0 Office Visit 02/23/2017 3:15p [facility] [place] [address] J47.9 [facility] J95.00 Office Visit 07/28/2016 9:20a [facility] Internal Medicine Ko Sparks, [address] [address]06[address] M.D. Office Visit 07/26/2016 3:45p [facility] [place] [address] J47.9 [facility] [place] J95.00 Office Visit 06/29/2016 3:00p [facility] Internal Medicine Td Moore, [address]62[address] - [address] MOseas,FACP K57.31 Office Visit 10/21/2015 9:15a Pul[facility] [address] J47.1 [facility] J98.4 J95.00 Office Visit 10/20/2015 4:00p [facility] Ko Sparks, 72185 J20.9 - [address] M.Zohreh. Office Visit 09/08/2015 3:15p Pul[facility] [place] [address] J47.9 [facility] J95.00 Office Visit 05/18/2015 10:40a [facility] Internal Medicine - Josiah Carmichael, DYAN [address] R07.89 H61.23 Office Visit 03/06/2015 1:20p [facility] Internal Medicine - Keegan Cruz M.D. [address] Office Visit 02/25/2015 3:30p [facility] [place] [address] J47.9 [facility] J95.09 J39.8 Office Visit 08/22/2014 2:00p Pulmonology [place] [address] 494.0 [facility] 518.89 519.00 Office Visit 05/14/2014 3:40p [facility] Medicine Josue Menjivar, 68896 922.1 - Angelo Garcia Office Visit 03/04/2014 2:40p [facility] Josue Menjivar, 31872 382.9 - Angelo Garcia Office Visit 05/13/2013 2:20p [facility] Medicine Josue Menjivar, 09404 382.9 - Whately MGloDGlo Office Visit 03/18/2013 2:20p [facility] Josue Menjivar, 40107 466.0 - Whately M.D. Office Visit 03/12/2013 9:30a [facility] Medicine Td Moore, 26158 466.0 - Whately MelecioDGlo,FACP Office Visit 02/04/2013 4:00p [facility] Medicine Josue Menjivar, 25152 466.0 - Whately MGloDGlo Office Visit 10/22/2012 11:15a [facility], 57995 754.70 C.MChi Garcia 754.30 738.6 726.71 736.73 Office Visit 03/13/2012 1:00p [facility] Medicine Minerva Live N.P. 59647 466.0 - Whately 789.04 Office Visit 03/02/2012 11:40a [facility] Internal Medicine Td Moroe, 85401 466.0 - Whatelytay Garcia,FACP Office Visit 08/24/2011 9:50a [facility] Medicine Td Moore, 56302 466.0 - Angelo Garcia,FACP Office Visit 05/30/2011 10:50a [facility] Medicine Td Moore, 38911 V70.0 - Angelo Garcia,FACP 569.3 733.00 V44.1 Office Visit 03/16/2011 8:00a DO Not Use [facility] AT Ko Sparks M.D. 91421 569.3 [facility] 530.81 564.09 Office Visit 04/02/2010 2:00p DO Not Use [facility] AT Td Moore, 55464 V70.0 Balbina Garcia,FACP 518.89 733.00 Office Visit 06/01/2009 2:45p DO Not Use [facility] AT Erna Mittal M.D. 82759 478.9 [facility] Office Visit 02/27/2008 9:20a DO Not Use Saw Man AT Td Moore, 73834 V70.0 Balbina Garcia,FACP 518.89 742.2 783.21 V04.81 v04.81 Office Visit 06/05/2007 2:30p DO Not Use [facility] AT [facility] [place] [address] 486 Plan of Care Future Appointment(s):08/23/2018 3:30 pm - Awilda Dowling MD at [facility]02/20/2018 - Awilda Dowling MDJ47.9 Bronchiectasis, uncomplicatedNew Medication:Nebusal 3 %Follow up:6 nnghjwL80.0 Tracheostomy statusNew Medication:Saline 0.9 %
[2018-03-17 17:03] VITALS: BP 159/138
--- NOTE | 2018-03-17 17:22 | UC ---
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 about 1 week ago has gone to develop infection with dime size area of purulence---and surrounding erythema--- does have some swelling but full rom - History of Current Complaint Chief Complaint: UCSkin Time Seen by Provider: 03/17/18 17:15 Stated Complaint: SOFT TISSUE Hx Obtained From: Patient Onset/Duration: Sudden Onset, Lasting Days - 7, Worse Since - 4- days Timing: Constant Pain Intensity: 3 Pain Scale Used: 0-10 Numeric Location: Discrete - right thumb m-p joint Character: Swelling, Pain, Redness Aggravating Factor(s): Nothing Alleviating Factor(s): Nothing - Allergy/Home Medications Allergies/Adverse Reactions: Allergies Allergy/AdvReac Type Severity Reaction Status Date / Time No Known Allergies Allergy Verified 03/17/18 17:03 Review of Systems All Other Systems Reviewed And Are Negative: Yes Constitutional: Positive: Negative Skin: Positive: Other - laceration right thumb near mp joint Eyes: Positive: Negative ENT: Positive: Negative Respiratory: Positive: Negative Cardiovascular: Positive: Negative Gastrointestinal: Positive: Negative Genitourinary: Positive: Negative Motor: Positive: Negative Neurovascular: Positive: Negative Musculoskeletal: Positive: Negative Neurological: Positive: Negative Psychological: Positive: Negative Is Patient Immunocompromised?: No PMH/Surg Hx/FS Hx/Imm Hx Previously Healthy: No - trach and g-tube - Surgical History Surgical History: Yes Surgery Procedure, Year, and Place: trach and gastrostomy since he was a infant - Family History Known Family History: Positive: None - Social History Occupation: Employed Full-time Lives: With Family Alcohol Use: None Substance Use Type: None Smoking Status (MU): Never Smoked Tobacco Physical Exam Triage Information Reviewed: Yes Appearance: Well-Appearing, No Pain Distress, Thin Vital Signs: Initial Vital Signs Temp 98.8 F 03/17/18 16:59 Pulse 68 03/17/18 16:59 Resp 18 03/17/18 16:59 BP 159/138 03/17/18 16:59 Pulse Ox 99 03/17/18 16:59 Vital Signs Reviewed: Yes Eye Exam: Normal Eyes: Positive: Conjunctiva Clear ENT Exam: Normal ENT: Positive: Normal ENT inspection, Hearing grossly normal, Other - speaks through trach. Negative: Trismus Dental Exam: Normal Neck exam: Normal Neck: Positive: Supple, Nontender Respiratory Exam: Normal Respiratory: Positive: Chest non-tender, No respiratory distress, No accessory muscle use Cardiovascular Exam: Normal Cardiovascular: Positive: RRR, Pulses Normal, Brisk Capillary Refill Musculoskeletal Exam: Normal Musculoskeletal: Positive: Strength Intact, ROM Intact, No Edema Neurological Exam: Normal Neurological: Positive: Alert, Muscle Tone Normal Psychological Exam: Normal Skin: Positive: Other - area of purulent collection at site of right thumb laceration Course/Dx - Course Course Of Treatment: dressing warm compress, soap and water wash--add BActrim re check wounf and blood pressure with doctor Teresa in next 3-4 days. To ED should symptoms worsen - Diagnoses Provider Diagnoses: hypertension with out diagnosi, would infection right thumb Discharge - Sign-Out/Discharge Documenting (check all that apply): Patient Departure All imaging exams completed and their final reports reviewed: No Studies - Discharge Plan Condition: Stable Disposition: HOME Prescriptions: Sulfamethox/Trimethoprim SUSP* [Bactrim Susp*] 20 ml PO BID 9 Days #360 ml Patient Education Materials: Wound Infection (ED), Hypertension (ED), Warm Compress or Soak (ED) Referrals: Td Moore MD [Primary Care Provider] - 3 Days - Billing Disposition and Condition Condition: STABLE Disposition: Home
[2018-03-17] MEDS ORDERED: Sulfamethox/Trimethoprim SUSP* 20 ML UDC PO ONE (17:23)
== END 2018-03-17 17:48 | disposition home or self-care (01) ==
LOC: UCEAST 16:07
DX: S61.012A Laceration without foreign body of left thumb without damage to nail, initial encounter (principal); L08.9 Local infection of the skin and subcutaneous tissue, unspecified; W26.0XXA Contact with knife, initial encounter; Y92.9 Unspecified place or not applicable
CPT/HCPCS: 99212; A9270-GY; G0463

== ENCOUNTER 2019-03-18 10:29 | Emergency (ER) | payer MEDICARE ==
[2019-03-18 12:19] VITALS: BP 113/67
--- NOTE | 2019-03-18 12:30 | UC ---
Respiratory Complaint HPI - HPI Summary HPI Summary: 33yo with tracheostomy with 5 day history of increasing cough and chest congestion, with thick green secretions when he suctions. He has had a low grade fever. Asessed at Dr. Esquivel's office on 03/15, started Tamiflu based on symptoms, without any improvement in the interim. He also has headache, decreased activity and decreased appetite. - History of Current Complaint Chief Complaint: UCRespiratory Stated Complaint: FLU LIKE SYMPTOMS Time Seen by Provider: 03/18/19 12:28 Hx Obtained From: Patient, Family/T[employer]or [employer]ment Alteration Onset/Duration: Gradual Onset, Lasting Days - 5 Timing: Constant Severity Initially: Moderate Severity Currently: Moderate Pain Intensity: 4 Character: Cough: Productive Aggravating Factors: Deep Breaths, Recumbent Position Alleviating Factors: Bronchodilator Associated Signs And Symptoms: Positive: Dyspnea, Fever, Nasal Congestion - Risk Factors Pulmonary Embolism Risk Factors: Negative Cardiac Risk Factors: Negative Pseudomonas Risk Factors: Negative Tuberculosis Risk Factors: Negative - Allergies/Home Medications Allergies/Adverse Reactions: Allergies Allergy/AdvReac Type Severity Reaction Status Date / Time No Known Allergies Allergy Verified 03/18/19 12:19 Home Medications: Home Medications Calcitriol CAP* [Rocaltrol CAP*] 1 tab PO DAILY 03/18/19 [History Confirmed ] Escitalopram Oxalate [Lexapro 10 mg] 1 tab PO DAILY 03/18/19 [History Confirmed 03/18/19] Oseltamivir CAP* [Tamiflu CAP*] 1 tab PO BID 03/18/19 [History Confirmed ] PMH/Surg Hx/FS Hx/Imm Hx - Additional Past Medical History Additional PMH: History of tracheostomy at early age. Psychological History: Other - Arnold Chiari malformation - Surgical History Surgical History: Yes Surgery Procedure, Year, and Place: Trach and gastrostomy since he was a - Family History Known Family History: Positive: None - Social History Occupation: Employed Full-time Alcohol Use: None Substance Use Type: None Smoking Status (MU): Never Smoked Tobacco Review of Systems All Other Systems Reviewed And Are Negative: Yes Constitutional: Positive: Fatigue Skin: Positive: Negative Eyes: Positive: Negative ENT: Positive: Negative Respiratory: Positive: Shortness Of Breath, Cough Cardiovascular: Negative: Chest Pain Gastrointestinal: Positive: Negative Genitourinary: Positive: Other - some tendency to loose stools Motor: Positive: Negative Neurovascular: Positive: Negative Musculoskeletal: Positive: Negative Neurological: Positive: Negative Psychological: Positive: Negative Is Patient Immunocompromised?: No Physical Exam Triage Information Reviewed: Yes Appearance: No Pain Distress, Ill-Appearing, Thin Vital Signs: Initial Vital Signs Temp 99.2 F 03/18/19 12:15 Pulse 100 03/18/19 12:15 Resp 24 03/18/19 12:15 BP 113/67 03/18/19 12:15 Pulse Ox 97 03/18/19 12:15 Eyes: Positive: Conjunctiva Clear ENT: Positive: Pharyngeal erythema Neck: Positive: Supple, Nontender, No Lymphadenopathy Respiratory: Positive: Decreased breath sounds - bilaterally, Rhonchi, Wheezing - thoroughout Cardiovascular: Positive: RRR, No Murmur Neurological: Positive: Alert, Muscle Tone Normal Psychological Exam: Normal Skin Exam: Normal Diagnostics - Radiology No standard instances Radiology Interpretation Completed By: Radiologist - Patient Name: YANG BHATTI Medical Record#: [id number] Ordering Physician: Lisa Clay MD Acct.#: [id number] : 1985 Age: 33 Sex: M Location: [facility] Exam Date: 03/18/19 1243 ADM Status: REG ER Order Information: CHEST PA & LAT 2 VWS Accession Number: [id number] CPT: 65793 INDICATION: Increasing cough. COMPARISON: Comparison is made with a prior chest x-ray study from September 12, 2018. TECHNIQUE : Dual-energy PA and lateral views of the chest were obtained. FINDINGS: The heart is within normal limits in size. There is mild prominence of the interstitial markings. There is a left basilar infiltrate involving the upper and lower lobes which is more prominent than on the prior study. There is a trace left pleural effusion. IMPRESSION: LEFT UPPER AND LOWER LOBE INFILTRATES MOST CONSISTENT WITH PNEUMONIA. RECOMMEND FOLLOW-UP CHEST X-RAYS TO RESOLUTION. < Electronically signed by Chava Lal MD in OV> 03/18/19 1312 Dictated By: Chava Lal MD Dictated Date/Time: 03/18/19 130 Transcribed Date/Time: 1308 Copy to: CC:Sreedhar Esquivel MD; Lisa Clay MD Imaging - [facility] - [place] [facility] [id number] [place] [id number] [place] [id number] ph [phone]) ph ([phone] ) ph ([phone]) This report is only to be considered final once signed by the Provider(s) as displayed in the "<Electronically Signed by >" field (s). Absence of a signature indicates the report is in a draft status and still needs to be finalized. In the event this document was created by someone other than the signing Provider, the individual initiating the document will be listed in the "Entered by:" or "Dictated by:" coy. 1 of 1 Respiratory Course/Dx - Course Course Of Treatment: amoxicillin and azithromyin for treatment of penumonia. follow up with Dr. Esquivel later this week. Advised to get flu shot; flu screen negative here and will stop use of tamiflu. continue use of albuterol nebs. - Differential Dx/Diagnosis Differential Diagnosis/HQI/PQRI: Asthma, Lower Resp Infection, Other - pneumonia Provider Diagnosis: Left lower lobe pneumonia Discharge ED - Sign-Out/Discharge Documenting (check all that apply): Patient Departure All imaging exams completed and their final reports reviewed: Yes - Discharge Plan Condition: Stable Disposition: HOME Prescriptions: Amoxicillin PO (*) [Amoxicillin 875 MG (*)] 875 mg PO BID #20 tab Azithromyxin ISAEL (NF) [Z-Isael (Zithromax) 250 mg tabs #6] 2 tab PO .TODAY, THEN 1 DAILY #6 tab Patient Education Materials: Bacterial Pneumonia (ED) Forms: *Work Release Referrals: Sreedhar Esquivel MD [Primary Care Provider] - Additional Instructions: You have been prescribed azithromyin and amoxicillin for treatment of pneumonia. Please arrange an evaluation with Dr. Esquivel for later this week to ensure improvement. Continue use of albuterol to decrease wheeze. Should Dr. Dowling's rx not be at the pharmacy, you can call here for a renewal. Off work this week. - Billing Disposition and Condition Condition: STABLE Disposition: Home
[2019-03-18 12:44] LABS: Influenza A Molecular NEGATIVE (Negative); Influenza B Molecular NEGATIVE (Negative)
== END 2019-03-18 13:45 | disposition home or self-care (01) ==
LOC: UCEAST 10:29
DX: J18.1 Lobar pneumonia, unspecified organism (principal)
CPT/HCPCS: 71046; 99212; G0463

== ENCOUNTER 2022-10-07 13:11 | Inpatient (IN) ==
[2022-10-07 15:05] LABS: ABS Basophils 0.1 10^3/uL (0.0-0.1); ABS Eosinophils 0.3 10^3/uL (0.0-0.5); ABS Lymphocytes 1.4 10^3/uL (1.0-4.8); ABS Monocytes 1.3 10^3/uL (0.0-1.1); Eosinophil % 2.5 %; Hematocrit 38.9 % (38-53); Hemoglobin 13.3 g/dL (13.2-16.3); Lymphocyte % 10.9 %; Mean Corpuscular Hemoglobin 29.8 pg (27-33); Mean Corpuscular Hgb Conc 34.3 g/dL (31-36); Mean Platelet Volume 9.2 fL (7.5-11.2); Platelet Count 252 10^3/uL (150-450); Red Blood Count 4.48 10^6/uL (4.06-5.63); Red Cell Distribution Width 14.6 % (12-17)
[2022-10-07] MEDS ORDERED: Lactated Ringers 1000 ml BAG 1,000 ML IV ONE (15:05)
[2022-10-07 15:49] LABS: Albumin 3.8 g/dL (3.2-5.2); Albumin/Globulin Ratio 0.9 (1-3); Calcium 9.3 mg/dL (8.6-10.3); Creatinine, Serum 0.7 mg/dL (0.67-1.17); Globulin 4.2 g/dL (2-4); Potassium 3.2 mmol/L (3.5-5.0); Total Bilirubin 0.9 mg/dL (0.2-1.0); eGFR CKD-EPI 122.5 (>60)
[2022-10-07] MEDS ORDERED: Iohexol 350 (CONTRAST) 500 ML MDV IV ONE (16:06)
[2022-10-07 17:00] LABS: Urine Appearance Cloudy; Urine Bilirubin Negative (Negative); Urine Blood Negative (Negative); Urine Color Yellow; Urine Glucose Negative (Negative); Urine Ketones 1+ (Negative); Urine Nitrite Negative (Negative); Urine Protein Negative (Negative); Urine Specific Gravity 1.049 (1.002-1.030); Urine Urobilinogen Negative (Negative)
[2022-10-07 22:17] LABS: Activated Partial Thrombo Time 26.2 seconds (26.0-38.0); INR 1.31 (0.88-1.18)
[2022-10-07] MEDS: Heparin 5000 UNITS/ML 1 mL VIAL SUBCUT SCH (22:18)
[2022-10-07] MEDS: Pantoprazole VIAL 40 MG VIAL IV SCH (22:18)
[2022-10-07] MEDS: NS 0.9% 1000 ml BAG 1,000 ML IV SCH (22:26)
[2022-10-07] MEDS: KCL 20 MEQ/100 ML IVPREMIX 20 MEQ/100 ML BAG IV SCH (22:26)
[2022-10-08] MEDS: KCL 20 MEQ/100 ML IVPREMIX 20 MEQ/100 ML BAG IV SCH ×2 (01:00→03:55)
[2022-10-08] MEDS: Acetaminophen IV 1 GM/100ML 1,000 MG/100 ML BAG IV PRN ×2 (01:14→12:24)
[2022-10-08] MEDS: NS 0.9% 1000 ml BAG 1,000 ML IV SCH (08:29)
[2022-10-08 10:16] LABS: Calcium 9.1 mg/dL (8.6-10.3); Magnesium 2.1 mg/dL (1.9-2.7); Potassium 3.8 mmol/L (3.5-5.0)
[2022-10-08 10:17] LABS: ABS Eosinophils 0.2 10^3/uL (0.0-0.5); ABS Lymphocytes 1.3 10^3/uL (1.0-4.8); ABS Monocytes 0.8 10^3/uL (0.0-1.1); ABS Neutrophils 7.5 10^3/uL (1.5-7.6); ABS Nucleated RBC 0.01 10^3/ul; Hematocrit 41.6 % (38-53); Hemoglobin 13.7 g/dL (13.2-16.3); Lymphocyte % 12.7 %; Mean Corpuscular Hemoglobin 29.7 pg (27-33); Mean Corpuscular Volume 90.1 fL (80-97); Mean Platelet Volume 9.1 fL (7.5-11.2); Nucleated Red Blood Cells % 0.1 /100 WBC (0.0-0.4); Platelet Count 227 10^3/uL (150-450); Red Blood Count 4.62 10^6/uL (4.06-5.63); Red Cell Distribution Width 14.9 % (12-17); White Blood Count 9.9 10^3/uL (3.6-10.2)
[2022-10-08 10:22] LABS: Creatinine, Serum 0.74 mg/dL (0.67-1.17); eGFR CKD-EPI 120.4 (>60)
[2022-10-08] MEDS: Heparin 5000 UNITS/ML 1 mL VIAL SUBCUT SCH ×2 (10:32→21:24)
[2022-10-08] MEDS: Pantoprazole VIAL 40 MG VIAL IV SCH ×2 (10:33→21:24)
[2022-10-08] MEDS: Calcium Carbonate LIQ 1,250 mg/5 ml UDC FEED TUBE SCH (10:41)
[2022-10-08] MEDS: D5LR 1000 ml BAG 1,000 ML IV SCH ×2 (12:24→23:12)
[2022-10-08] MEDS ORDERED: Morphine 10 MG/ML VIAL (1 ml) IV ONE (16:56)
[2022-10-08] MEDS ORDERED: Morphine 4 MG/ML VIAL (1 ml) IV ONE (17:05)
[2022-10-09 06:33] LABS: Calcium 8.7 mg/dL (8.6-10.3); Creatinine, Serum 0.69 mg/dL (0.67-1.17); Magnesium 1.8 mg/dL (1.9-2.7); Potassium 3.6 mmol/L (3.5-5.0)
[2022-10-09] MEDS ORDERED: Magnesium Sulfate 2 gm BAG 2 GM/50 ML BAG IVPB ONE (07:45)
[2022-10-09] MEDS: Acetaminophen IV 1 GM/100ML 1,000 MG/100 ML BAG IV PRN (07:58)
[2022-10-09] MEDS: Heparin 5000 UNITS/ML 1 mL VIAL SUBCUT SCH ×2 (07:59→22:18)
[2022-10-09] MEDS: Pantoprazole VIAL 40 MG VIAL IV SCH ×2 (07:59→22:18)
[2022-10-09] MEDS: Calcium Carbonate LIQ 1,250 mg/5 ml UDC FEED TUBE SCH (09:11)
[2022-10-09] MEDS ORDERED: Potassium Phosphate IV 10 MMOL in NS 0.9% 250 ml 250 ML IVPB ONE (10:45)
[2022-10-09] MEDS ORDERED: KCL 20 MEQ/100 ML IVPREMIX 20 MEQ/100 ML BAG IV ONE (11:01)
[2022-10-09] MEDS: D5LR 1000 ml BAG 1,000 ML IV SCH ×2 (11:41→22:22)
[2022-10-09] MEDS: Ondansetron 4 mg VIAL 2 MG/ML 2 ml VIAL IV PRN (14:17)
[2022-10-10 06:14] LABS: Calcium 8.9 mg/dL (8.6-10.3); Creatinine, Serum 0.75 mg/dL (0.67-1.17); Magnesium 2.1 mg/dL (1.9-2.7); Potassium 3.9 mmol/L (3.5-5.0); eGFR CKD-EPI 119.9 (>60)
[2022-10-10] MEDS ORDERED: Potassium Chloride LIQUID 20 MEQ/15 ML LIQUID PO ONE (07:05)
[2022-10-10] MEDS: Pantoprazole VIAL 40 MG VIAL IV SCH ×2 (09:45→19:38)
[2022-10-10] MEDS: Heparin 5000 UNITS/ML 1 mL VIAL SUBCUT SCH ×2 (09:46→19:39)
[2022-10-10] MEDS: Calcium Carbonate LIQ 1,250 mg/5 ml UDC FEED TUBE SCH (09:49)
[2022-10-10] MEDS: Ondansetron 4 mg VIAL 2 MG/ML 2 ml VIAL IV PRN (11:22)
[2022-10-10] MEDS ORDERED: Propofol 10 MG/ML 20 ML BTL ONE ×2 (16:19)
[2022-10-10] MEDS ORDERED: Lidocaine 2% PF 5 ML VIAL ONE (16:20)
[2022-10-10] MEDS: D5LR 1000 ml BAG 1,000 ML IV SCH (19:36)
[2022-10-11] MEDS: Acetaminophen IV 1 GM/100ML 1,000 MG/100 ML BAG IV PRN ×2 (00:19→09:26)
[2022-10-11] MEDS: D5LR 1000 ml BAG 1,000 ML IV SCH (07:26)
[2022-10-11 08:39] LABS: ABS Eosinophils 0.2 10^3/uL (0.0-0.5); ABS Lymphocytes 1.1 10^3/uL (1.0-4.8); ABS Monocytes 0.5 10^3/uL (0.0-1.1); ABS Neutrophils 4.7 10^3/uL (1.5-7.6); ABS Nucleated RBC 0.01 10^3/ul; Eosinophil % 2.7 %; Hematocrit 40.6 % (38-53); Hemoglobin 13.6 g/dL (13.2-16.3); Lymphocyte % 16.4 %; Mean Corpuscular Hemoglobin 29.5 pg (27-33); Mean Corpuscular Hgb Conc 33.5 g/dL (31-36); Mean Corpuscular Volume 88.2 fL (80-97); Mean Platelet Volume 8.8 fL (7.5-11.2); Nucleated Red Blood Cells % 0.1 /100 WBC (0.0-0.4); Platelet Count 228 10^3/uL (150-450); Red Blood Count 4.61 10^6/uL (4.06-5.63); Red Cell Distribution Width 14.6 % (12-17); White Blood Count 6.4 10^3/uL (3.6-10.2)
[2022-10-11 08:54] LABS: Calcium 9.1 mg/dL (8.6-10.3); Creatinine, Serum 0.78 mg/dL (0.67-1.17); Potassium 3.4 mmol/L (3.5-5.0); eGFR CKD-EPI 118.5 (>60)
[2022-10-11] MEDS: Pantoprazole VIAL 40 MG VIAL IV SCH ×2 (09:12→20:35)
[2022-10-11] MEDS: Heparin 5000 UNITS/ML 1 mL VIAL SUBCUT SCH ×2 (09:12→20:36)
[2022-10-11] MEDS: Calcium Carbonate LIQ 1,250 mg/5 ml UDC FEED TUBE SCH (09:14)
[2022-10-11] MEDS: KCL 20 MEQ/100 ML IVPREMIX 20 MEQ/100 ML BAG IV SCH ×2 (11:00→15:34)
[2022-10-11] MEDS: Ondansetron 4 mg VIAL 2 MG/ML 2 ml VIAL IV PRN (12:28)
[2022-10-11 15:40] LABS: C Reactive Protein 112.94 mg/L (<8.01)
[2022-10-11 18:44] LABS: Calcium 9.1 mg/dL (8.6-10.3); Creatinine, Serum 0.69 mg/dL (0.67-1.17); Potassium 4.1 mmol/L (3.5-5.0)
[2022-10-12 06:30] LABS: Calcium 9.3 mg/dL (8.6-10.3); Creatinine, Serum 0.75 mg/dL (0.67-1.17); Potassium 3.9 mmol/L (3.5-5.0); eGFR CKD-EPI 119.9 (>60)
[2022-10-12] MEDS: D5LR 1000 ml BAG 1,000 ML IV SCH ×2 (07:36→18:07)
[2022-10-12] MEDS: Heparin 5000 UNITS/ML 1 mL VIAL SUBCUT SCH ×2 (12:26→21:30)
[2022-10-12] MEDS: Pantoprazole VIAL 40 MG VIAL IV SCH ×2 (12:26→21:30)
[2022-10-12] MEDS: Calcium Carbonate LIQ 1,250 mg/5 ml UDC FEED TUBE SCH (12:26)
[2022-10-13 05:43] VITALS: BP 106/70
[2022-10-13] MEDS: Pantoprazole VIAL 40 MG VIAL IV SCH (08:37)
[2022-10-13] MEDS: Calcium Carbonate LIQ 1,250 mg/5 ml UDC FEED TUBE SCH (08:38)
[2022-10-13] MEDS: Heparin 5000 UNITS/ML 1 mL VIAL SUBCUT SCH (08:38)
[2022-10-13 09:39] LABS: Rapid COVID-19 Molecular Undetected (Undetected)
== END 2022-10-13 10:00 | disposition short-term general hospital (02) | DRG 254 ==
LOC: ED 13:11 → EDHOLD 13:11 → SUATTDRO 18:21 → EDHOLD 21:03 → MED 21:31 → SUATTDRO 10-09 08:00
PROVIDERS: ADMIT Student in an Organized Health Care Education/Training Program; ATTEND Internal Medicine
PROC: O.GIEGD (2022-10-10 15:05)

== ENCOUNTER 2022-11-07 09:26 | Inpatient (IN) ==
[2022-11-07] MEDS ORDERED: Lactated Ringers 1000 ml BAG 1,000 ML IV ONE ×2 (11:31→13:32)
[2022-11-07] MEDS ORDERED: Azithromycin 500 mg/250 ml NS 500 MG/250 ML BAG IVPB ONE (11:33)
[2022-11-07] MEDS ORDERED: cefTRIAXone 1 gm/50 mL D5W 1 GM/50 ML BAG IV ONE (11:33)
[2022-11-07 11:42] LABS: ABS Lymphocytes 0.4 10^3/uL (1.0-4.8); ABS Monocytes 0.4 10^3/uL (0.0-1.1); ABS Neutrophils 6.2 10^3/uL (1.5-7.6); ABS Nucleated RBC 0.01 10^3/ul; Eosinophil % 0.2 %; Hematocrit 35.4 % (38-53); Lymphocyte % 6.1 %; Mean Corpuscular Volume 85.4 fL (80-97); Mean Platelet Volume 8.8 fL (7.5-11.2); Nucleated Red Blood Cells % 0.1 /100 WBC (0.0-0.4); Platelet Count 116 10^3/uL (150-450); Red Blood Count 4.15 10^6/uL (4.06-5.63); Red Cell Distribution Width 16.9 % (12-17); White Blood Count 7.1 10^3/uL (3.6-10.2)
[2022-11-07 11:46] LABS: Activated Partial Thrombo Time 31.3 seconds (26.0-38.0); INR 1.36 (0.88-1.18)
[2022-11-07 12:02] LABS: Albumin 3.6 g/dL (3.2-5.2); C Reactive Protein 148.25 mg/L (<8.01); Calcium 9.1 mg/dL (8.6-10.3); Creatinine, Serum 0.76 mg/dL (0.67-1.17); Globulin 3.6 g/dL (2-4); Potassium 3.4 mmol/L (3.5-5.0); Total Bilirubin 4.1 mg/dL (0.2-1.0); Total Protein 7.2 g/dL (6.4-8.9); eGFR CKD-EPI 119.5 (>60)
[2022-11-07 13:33] LABS: High Sensitivity Troponin 1 Hr 44 pg/mL (<20)
[2022-11-07] MEDS ORDERED: NS 0.9% 1000 ml BAG 1,000 ML IV SCH (18:15)
[2022-11-07 19:28] LABS: Direct Bilirubin 0.9 mg/dL (0.03-0.18); Indirect Bilirubin 3.2 mg/dL (0.3-1.0)
[2022-11-07 19:51] LABS: Urine Appearance Clear; Urine Bilirubin Negative (Negative); Urine Blood Negative (Negative); Urine Color Amber; Urine Glucose Negative (Negative); Urine Ketones Negative (Negative); Urine Nitrite Negative (Negative); Urine Protein 1+(30 mg/dL) (Negative); Urine Specific Gravity 1.016 (1.002-1.030); Urine Urobilinogen Positive (Negative)
[2022-11-07 19:55] LABS: Urine Bacteria Absent (Absent); Urine Red Blood Cell Trace(0-2/hpf) (Absent); Urine Squamous Epithelial Cell Present (Absent); Urine White Blood Cell Trace(0-5/hpf) (Absent)
[2022-11-07] MEDS: Acetaminophen IV 1 GM/100ML 1,000 MG/100 ML BAG IV PRN (22:44)
[2022-11-08] MEDS: TPN IV SCH ×3 (00:38→08:30)
[2022-11-08 06:33] LABS: Albumin 3.1 g/dL (3.2-5.2); Calcium 8.4 mg/dL (8.6-10.3); Creatinine, Serum 0.66 mg/dL (0.67-1.17); Globulin 3.1 g/dL (2-4); Magnesium 1.9 mg/dL (1.9-2.7); Potassium 3.7 mmol/L (3.5-5.0); Total Bilirubin 2.3 mg/dL (0.2-1.0); Total Protein 6.2 g/dL (6.4-8.9); eGFR CKD-EPI 124.7 (>60)
[2022-11-08 06:46] LABS: Hematocrit 29.7 % (38-53); Hemoglobin 10.1 g/dL (13.2-16.3); Mean Corpuscular Hemoglobin 29.7 pg (27-33); Mean Corpuscular Hgb Conc 34.1 g/dL (31-36); Mean Platelet Volume 10.2 fL (7.5-11.2); Platelet Count 101 10^3/uL (150-450); Red Blood Count 3.41 10^6/uL (4.06-5.63); Red Cell Distribution Width 17.3 % (12-17); White Blood Count 5.5 10^3/uL (3.6-10.2)
[2022-11-08 07:12] LABS: ABS Eosinophils 0.1 10^3/uL (0.0-0.5); ABS Lymphocytes 1.3 10^3/uL (1.0-4.8); ABS Monocytes 0.9 10^3/uL (0.0-1.1); ABS Neutrophils 3.2 10^3/uL (1.5-7.6); ABS Nucleated RBC 0.01 10^3/ul; Anisocytosis 1+; Eosinophil % 1.2 %; Lymphocyte % 23.7 %; Nucleated Red Blood Cells % 0.2 /100 WBC (0.0-0.4)
[2022-11-08] MEDS ORDERED: cefTRIAXone 1 gm/50 mL D5W 1 GM/50 ML BAG IV SCH ×2 (09:00)
[2022-11-08] MEDS ORDERED: Azithromycin 500 mg/250 ml NS 500 MG/250 ML BAG IVPB SCH ×2 (09:00)
[2022-11-08] MEDS: CMCS: Pantoprazole Packet (NF) 40 MG GRANPKT.DR G TUBE SCH (10:25)
[2022-11-08 13:07] LABS: Albumin 3.3 g/dL (3.2-5.2); Albumin/Globulin Ratio 0.9 (1-3); Calcium 8.5 mg/dL (8.6-10.3); Creatinine, Serum 0.54 mg/dL (0.67-1.17); Globulin 3.5 g/dL (2-4); Magnesium 1.9 mg/dL (1.9-2.7); Phosphorus 2.6 mg/dL (2.5-5.0); Potassium 3.9 mmol/L (3.5-5.0); Total Bilirubin 1.3 mg/dL (0.2-1.0); Total Protein 6.8 g/dL (6.4-8.9); eGFR CKD-EPI 132.5 (>60)
[2022-11-08] MEDS ORDERED: Polyethylene Glycol 3350 17 GM PACKET G TUBE PRN (14:44)
[2022-11-08] MEDS ORDERED: Cefepime ADVAN 1 GM in NS 0.9% 50 ML 50 ML IVPB SCH (17:00)
[2022-11-08] MEDS: Cefepime 1 GM in Dextrose 1 GM/50 ML BAG IV SCH (17:52)
[2022-11-08] MEDS: TPN 24 HR with Dextrose 50% Water 500 ML, Amino Acid Infusion 10% 850 ML, Sterile Water... CENT\\PICC SCH (17:53)
[2022-11-08] MEDS: Lactated Ringers 1000 ml BAG 1,000 ML IV SCH (22:10)
[2022-11-09] MEDS: Cefepime 1 GM in Dextrose 1 GM/50 ML BAG IV SCH ×2 (06:08→17:08)
[2022-11-09 06:12] LABS: Albumin 3.1 g/dL (3.2-5.2); Calcium 8.5 mg/dL (8.6-10.3); Creatinine, Serum 0.67 mg/dL (0.67-1.17); Globulin 3.1 g/dL (2-4); Potassium 3.8 mmol/L (3.5-5.0); Total Bilirubin 0.7 mg/dL (0.2-1.0); Total Protein 6.2 g/dL (6.4-8.9); eGFR CKD-EPI 124.1 (>60)
[2022-11-09] MEDS: Acetaminophen IV 1 GM/100ML 1,000 MG/100 ML BAG IV PRN ×2 (07:04→21:25)
[2022-11-09] MEDS ORDERED: Lactated Ringers 1000 ml BAG 1,000 ML IV ONE (07:32)
[2022-11-09] MEDS: CMCS: Pantoprazole Packet (NF) 40 MG GRANPKT.DR G TUBE SCH (11:02)
[2022-11-09] MEDS ORDERED: Senna TAB 8.6 mg TAB G TUBE ONE (16:08)
[2022-11-09] MEDS: Ondansetron 4 mg VIAL 2 MG/ML 2 ml VIAL IV PRN ×2 (17:08→18:37)
[2022-11-09] MEDS: TPN 24 HR with Dextrose 50% Water 500 ML, Amino Acid Infusion 10% 850 ML, Sterile Water... CENT\\PICC SCH (18:30)
[2022-11-09] MEDS: Lactated Ringers 1000 ml BAG 1,000 ML IV SCH ×2 (18:37→18:42)
[2022-11-10] MEDS: Cefepime 1 GM in Dextrose 1 GM/50 ML BAG IV SCH ×2 (05:53→17:52)
[2022-11-10] MEDS: Lactated Ringers 1000 ml BAG 1,000 ML IV SCH ×2 (08:34→19:27)
[2022-11-10] MEDS: CMCS: Pantoprazole Packet (NF) 40 MG GRANPKT.DR G TUBE SCH (08:35)
[2022-11-10 08:43] LABS: ABS Eosinophils 0.1 10^3/uL (0.0-0.5); ABS Lymphocytes 1.5 10^3/uL (1.0-4.8); ABS Monocytes 0.4 10^3/uL (0.0-1.1); ABS Neutrophils 4.4 10^3/uL (1.5-7.6); ABS Nucleated RBC 0.01 10^3/ul; Eosinophil % 2.1 %; Hemoglobin 10.5 g/dL (13.2-16.3); Lymphocyte % 23.3 %; Mean Corpuscular Hemoglobin 29.2 pg (27-33); Mean Corpuscular Hgb Conc 33.8 g/dL (31-36); Mean Corpuscular Volume 86.2 fL (80-97); Mean Platelet Volume 8.9 fL (7.5-11.2); Nucleated Red Blood Cells % 0.1 /100 WBC (0.0-0.4); Platelet Count 155 10^3/uL (150-450); Red Blood Count 3.59 10^6/uL (4.06-5.63); Red Cell Distribution Width 16.8 % (12-17); White Blood Count 6.4 10^3/uL (3.6-10.2)
[2022-11-10 08:52] LABS: Calcium 8.9 mg/dL (8.6-10.3); Creatinine, Serum 0.69 mg/dL (0.67-1.17); Magnesium 2.1 mg/dL (1.9-2.7); Potassium 3.9 mmol/L (3.5-5.0)
[2022-11-10 10:33] LABS: Albumin 3.3 g/dL (3.2-5.2); Albumin/Globulin Ratio 0.9 (1-3); Direct Bilirubin 0.1 mg/dL (0.03-0.18); Globulin 3.5 g/dL (2-4); Indirect Bilirubin 0.5 mg/dL (0.3-1.0); Total Bilirubin 0.6 mg/dL (0.2-1.0); Total Protein 6.8 g/dL (6.4-8.9)
[2022-11-10] MEDS ORDERED: Gadoteridol (CONTRAST) 279.3 MG/ML 10 ML IV ONE (13:36)
[2022-11-10] MEDS: TPN 24 HR with Dextrose 50% Water 500 ML, Amino Acid Infusion 10% 850 ML, Sterile Water... CENT\\PICC SCH (17:54)
[2022-11-11 04:49] LABS: ABS Eosinophils 0.2 10^3/uL (0.0-0.5); ABS Lymphocytes 1.6 10^3/uL (1.0-4.8); ABS Monocytes 0.4 10^3/uL (0.0-1.1); ABS Neutrophils 4.4 10^3/uL (1.5-7.6); ABS Nucleated RBC 0.01 10^3/ul; Eosinophil % 2.4 %; Hematocrit 29.3 % (38-53); Hemoglobin 10.1 g/dL (13.2-16.3); Lymphocyte % 23.8 %; Mean Corpuscular Hemoglobin 29.8 pg (27-33); Mean Corpuscular Hgb Conc 34.4 g/dL (31-36); Mean Corpuscular Volume 86.7 fL (80-97); Mean Platelet Volume 8.3 fL (7.5-11.2); Nucleated Red Blood Cells % 0.1 /100 WBC (0.0-0.4); Platelet Count 167 10^3/uL (150-450); Red Blood Count 3.38 10^6/uL (4.06-5.63); Red Cell Distribution Width 16.8 % (12-17); White Blood Count 6.5 10^3/uL (3.6-10.2)
[2022-11-11 05:07] LABS: Albumin 3.2 g/dL (3.2-5.2); Calcium 8.8 mg/dL (8.6-10.3); Creatinine, Serum 0.71 mg/dL (0.67-1.17); Globulin 3.2 g/dL (2-4); Potassium 3.6 mmol/L (3.5-5.0); Total Bilirubin 0.8 mg/dL (0.2-1.0); Total Protein 6.4 g/dL (6.4-8.9); eGFR CKD-EPI 121.9 (>60)
[2022-11-11] MEDS: Cefepime 1 GM in Dextrose 1 GM/50 ML BAG IV SCH ×2 (05:54→17:02)
[2022-11-11 06:32] LABS: High Sensitivity Troponin 1 Hr 10 pg/mL (<20)
[2022-11-11] MEDS: CMCS: Pantoprazole Packet (NF) 40 MG GRANPKT.DR G TUBE SCH (08:27)
[2022-11-11] MEDS: Lactated Ringers 1000 ml BAG 1,000 ML IV SCH (10:48)
[2022-11-11] MEDS ORDERED: Propofol 10 MG/ML 20 ML BTL ONE (14:28)
[2022-11-11] MEDS ORDERED: Glycopyrrolate IV 0.2 MG/ML 1 ML VIAL ONE (14:28)
[2022-11-11] MEDS ORDERED: Lidocaine 2% PF 5 ML VIAL ONE (14:28)
[2022-11-11] MEDS ORDERED: Ondansetron 4 mg VIAL 2 MG/ML 2 ml VIAL IV PRN (15:00)
[2022-11-11] MEDS ORDERED: Acetaminophen IV 1 GM/100ML 1,000 MG/100 ML BAG IV PRN (15:00)
[2022-11-11] MEDS ORDERED: Naloxone 0.4 mg VIAL 0.4 mg/ml 1 ml VIAL IV PRN (15:00)
[2022-11-11 16:22] VITALS: BP 104/64
[2022-11-11 18:19] LABS: Hepatitis B Surface Antigen Nonreactive (Nonreactive)
[2022-11-11 18:24] LABS: Hepatitis A Ab IgM Negative (Negative); Hepatitis B Core IgM Nonreactive (Nonreactive)
[2022-11-11 18:36] LABS: Hepatitis C Antibody Negative (Negative)
== END 2022-11-11 18:25 | disposition home or self-care (01) | DRG 721 ==
LOC: ED 09:26 → EDHOLD 09:26 → OBSVTOIN 17:23 → SUATTDRO 17:23 → EDHOLD 21:30 → MED 22:13
PROVIDERS: ADMIT Internal Medicine; ATTEND Hospitalist
PROC: O.GIEGD (2022-11-11 14:35)

== ENCOUNTER 2022-12-06 08:47 | Observation (INO) ==
[2022-12-06] MEDS ORDERED: Lactated Ringers 1000 ml BAG 1,000 ML IV ONE ×4 (09:12→17:13)
[2022-12-06 10:16] LABS: ABS Lymphocytes 0.4 10^3/uL (1.0-4.8); ABS Monocytes 0.1 10^3/uL (0.0-1.1); ABS Neutrophils 7.8 10^3/uL (1.5-7.6); ABS Nucleated RBC 0.02 10^3/ul; Eosinophil % 0.1 %; Hematocrit 40.5 % (38-53); Hemoglobin 13.9 g/dL (13.2-16.3); Lymphocyte % 4.7 %; Mean Corpuscular Hemoglobin 30.3 pg (27-33); Mean Corpuscular Hgb Conc 34.4 g/dL (31-36); Mean Platelet Volume 8.7 fL (7.5-11.2); Nucleated Red Blood Cells % 0.2 /100 WBC (0.0-0.4); Platelet Count 162 10^3/uL (150-450); Red Cell Distribution Width 16.4 % (12-17); White Blood Count 8.3 10^3/uL (3.6-10.2)
[2022-12-06 10:37] LABS: Albumin 3.7 g/dL (3.2-5.2); C Reactive Protein 57.58 mg/L (<8.01); Calcium 8.8 mg/dL (8.6-10.3); Creatinine, Serum 0.85 mg/dL (0.67-1.17); Globulin 3.7 g/dL (2-4); Potassium 3.5 mmol/L (3.5-5.0); Total Bilirubin 2.4 mg/dL (0.2-1.0); Total Protein 7.4 g/dL (6.4-8.9); eGFR CKD-EPI 115.5 (>60)
[2022-12-06] MEDS ORDERED: Piperacillin/Tazobac 3.375 BAG 3.375 GM/100 ML BAG IV ONE ×2 (10:52→20:00)
[2022-12-06] MEDS ORDERED: Vancomycin 1,500 MG in NS 0.9% 250 ml 250 ML IVPB ONE (10:52)
[2022-12-06 11:33] LABS: Activated Partial Thrombo Time 30.1 seconds (26.0-38.0); INR 1.24 (0.88-1.18)
[2022-12-06 11:39] LABS: High Sensitivity Troponin 1 Hr 69 pg/mL (<20)
[2022-12-06] MEDS ORDERED: Iohexol 350 (CONTRAST) 500 ML MDV IV ONE (12:03)
[2022-12-06 12:29] LABS: Urine Appearance Cloudy; Urine Bilirubin Negative (Negative); Urine Blood Negative (Negative); Urine Color Yellow; Urine Glucose Negative (Negative); Urine Ketones Negative (Negative); Urine Nitrite Negative (Negative); Urine Protein 1+(30 mg/dL) (Negative); Urine Urobilinogen Negative (Negative)
[2022-12-06 12:34] LABS: Urine Bacteria Absent (Absent); Urine Red Blood Cell Absent (Absent); Urine White Blood Cell Absent (Absent)
[2022-12-06 14:06] LABS: Direct Bilirubin 0.6 mg/dL (0.03-0.18); Indirect Bilirubin 1.8 mg/dL (0.3-1.0); Magnesium 1.5 mg/dL (1.9-2.7)
[2022-12-06] MEDS ORDERED: Magnesium Sulfate IV 3 GM in NS 0.9% 100 ml BAG 100 ML IVPB ONE (14:54)
[2022-12-06] MEDS ORDERED: ZOSYN 3.375 GM Q8H per EXTENDED INFUSION IV SCH (15:30)
[2022-12-06] MEDS ORDERED: Zosyn per Pharmacy NOTE FOLLOW UP SCH (16:00)
[2022-12-06] MEDS ORDERED: ZOSYN 3.375 GM x ONE DOSE over 30 miuntes IV (17:30)
[2022-12-06] MEDS ORDERED: NS 0.9% 1000 ml BAG 1,000 ML IV ONE (17:41)
[2022-12-06] MEDS ORDERED: Acetaminophen IV 1 GM/100ML 1,000 MG/100 ML BAG IV ONE (19:46)
[2022-12-06] MEDS: ZOSYN 3.375 GM Q8H per EXTENDED INFUSION IV SCH (23:34)
[2022-12-07] MEDS ORDERED: NS 0.9% 1000 ml BAG 500 ML IV ONE (02:24)
[2022-12-07] MEDS: ZOSYN 3.375 GM Q8H per EXTENDED INFUSION IV SCH ×3 (05:22→22:15)
[2022-12-07 07:08] LABS: Albumin 3.3 g/dL (3.2-5.2); Calcium 8.4 mg/dL (8.6-10.3); Creatinine, Serum 0.86 mg/dL (0.67-1.17); Globulin 3.3 g/dL (2-4); Magnesium 2.2 mg/dL (1.9-2.7); Phosphorus 2.8 mg/dL (2.5-5.0); Potassium 3.8 mmol/L (3.5-5.0); Total Bilirubin 3.8 mg/dL (0.2-1.0); Total Protein 6.6 g/dL (6.4-8.9); eGFR CKD-EPI 115.1 (>60)
[2022-12-07] MEDS: CMCS: Pantoprazole Packet (NF) 40 MG GRANPKT.DR G TUBE SCH (08:31)
[2022-12-07 10:33] LABS: Direct Bilirubin 0.5 mg/dL (0.03-0.18); Indirect Bilirubin 3.3 mg/dL (0.3-1.0)
[2022-12-07 15:28] LABS: ABS Lymphocytes 0.6 10^3/uL (1.0-4.8); ABS Monocytes 0.7 10^3/uL (0.0-1.1); ABS Nucleated RBC 0.02 10^3/ul; Eosinophil % 0.3 %; Hematocrit 36.7 % (38-53); Hemoglobin 12.2 g/dL (13.2-16.3); Lymphocyte % 6.5 %; Mean Corpuscular Hemoglobin 29.3 pg (27-33); Mean Corpuscular Hgb Conc 33.3 g/dL (31-36); Mean Corpuscular Volume 87.9 fL (80-97); Mean Platelet Volume 9.8 fL (7.5-11.2); Nucleated Red Blood Cells % 0.2 /100 WBC (0.0-0.4); Platelet Count 128 10^3/uL (150-450); Red Blood Count 4.18 10^6/uL (4.06-5.63); Red Cell Distribution Width 16.6 % (12-17); White Blood Count 9.4 10^3/uL (3.6-10.2)
[2022-12-07] MEDS ORDERED: Acetaminophen IV 1 GM/100ML 1,000 MG/100 ML BAG IV ONE (19:27)
[2022-12-08] MEDS: ZOSYN 3.375 GM Q8H per EXTENDED INFUSION IV SCH ×3 (05:27→21:55)
[2022-12-08 06:10] LABS: Hematocrit 35.4 % (38-53); Hemoglobin 11.9 g/dL (13.2-16.3); Mean Corpuscular Hemoglobin 29.6 pg (27-33); Mean Corpuscular Hgb Conc 33.7 g/dL (31-36); Mean Corpuscular Volume 87.8 fL (80-97); Mean Platelet Volume 9.5 fL (7.5-11.2); Platelet Count 105 10^3/uL (150-450); Red Blood Count 4.03 10^6/uL (4.06-5.63); White Blood Count 6.2 10^3/uL (3.6-10.2)
[2022-12-08 06:28] LABS: Albumin 3.3 g/dL (3.2-5.2); Calcium 8.6 mg/dL (8.6-10.3); Creatinine, Serum 0.77 mg/dL (0.67-1.17); Globulin 3.3 g/dL (2-4); Potassium 3.9 mmol/L (3.5-5.0); Total Bilirubin 1.5 mg/dL (0.2-1.0); Total Protein 6.6 g/dL (6.4-8.9)
[2022-12-08 06:47] LABS: RBC Morphology Normal (Normal)
[2022-12-08 06:48] LABS: ABS Eosinophils 0.4 10^3/uL (0.0-0.5); ABS Lymphocytes 1.5 10^3/uL (1.0-4.8); ABS Monocytes 1.1 10^3/uL (0.0-1.1); ABS Neutrophils 3.3 10^3/uL (1.5-7.6); ABS Nucleated RBC 0.01 10^3/ul; Eosinophil % 6.1 %; Lymphocyte % 23.9 %; Nucleated Red Blood Cells % 0.1 /100 WBC (0.0-0.4)
[2022-12-08] MEDS: CMCS: Pantoprazole Packet (NF) 40 MG GRANPKT.DR G TUBE SCH (09:57)
[2022-12-08] MEDS ORDERED: Ondansetron 4 mg VIAL 2 MG/ML 2 ml VIAL IV PRN (13:25)
[2022-12-09] MEDS: ZOSYN 3.375 GM Q8H per EXTENDED INFUSION IV SCH (06:02)
[2022-12-09 06:28] LABS: Albumin 3.6 g/dL (3.2-5.2); Calcium 8.7 mg/dL (8.6-10.3); Creatinine, Serum 0.75 mg/dL (0.67-1.17); Globulin 3.6 g/dL (2-4); Potassium 3.9 mmol/L (3.5-5.0); Total Protein 7.2 g/dL (6.4-8.9); eGFR CKD-EPI 119.2 (>60)
[2022-12-09 10:12] VITALS: BP 109/63
[2022-12-09] MEDS: CMCS: Pantoprazole Packet (NF) 40 MG GRANPKT.DR G TUBE SCH (10:56)
== END 2022-12-09 13:40 | disposition home or self-care (01) ==
LOC: ED 08:47 → EDHOLD 08:47 → SUATTDRO 13:33 → MED 15:42
PROVIDERS: ADMIT Internal Medicine; ATTEND Hospitalist